=== PATIENT | female | born 1990 | race Caucasian/White ===

== ENCOUNTER 2019-10-05 12:50 | Emergency (ER) | payer SELFPAY ==
--- NOTE | 2019-10-05 13:01 | EDM.PDOC ---
ED HPI GENERAL MEDICAL PROBLEM - General Chief Complaint: General Stated Complaint: MEDICAL CLEARANCE Time Seen by Provider: 10/05/19 13:00 Source of Information: Reports: Patient History Limitations: Reports: No Limitations - History of Present Illness INITIAL COMMENTS - FREE TEXT/NARRATIVE: HISTORY AND PHYSICAL: History of present illness: Patient is a 29-year-old female who presents to the emergency room with law enforcement complaining of neck pain after having being pressed up against the wall by an officer. The officer states she was resisting arrest when he did have to put her against the wall to handcuff turgor. There was no fall or significant injury with putting her in cuffs. Patient does note that she has chronic neck pain but does want it x-rayed at this time. She denies any numbness , tingling, headache, change in vision. Patient is fully ambulatory without any difficulty or deficits. Offers no systemic complaints. Review of systems: As per history of present illness and below otherwise all systems reviewed and negative. Past medical history: As per history of present illness and as reviewed below otherwise noncontributory. Surgical history: As per history of present illness and as reviewed below otherwise noncontributory. Social history: See social history for further information Family history: As per history of present illness and as reviewed below otherwise noncontributory. Physical exam: General: Well-developed and well-nourished 29-year-old female. Alert and oriented. Anxious appearing and hyperverbal. Answers questions appropriately and ambulatory in the room. Enforcement is at the bedside as patient is in handcuffs. HEENT: Atraumatic, normocephalic, pupils equal and reactive bilaterally, negative for conjunctival pallor or scleral icterus, mucous membranes moist, TMs normal bilaterally, throat clear, neck supple, nontender, trachea midline. No drooling or trismus noted. No meningeal signs. No hot potato voice noted. Lungs: Clear to auscultation, breath sounds equal bilaterally, chest nontender. Heart: S1S2, regular rate and rhythm without overt murmur Abdomen: Soft, nondistended, nontender. Negative for masses or hepatosplenomegaly. Negative for costovertebral tenderness. C-spine/Back: No pinpoint vertebral tenderness upon palpation. No crepitus, step -offs or obvious deformities. Patient is ambulatory into the emergency room without difficulty or deficit. Able to rock back on heels and walk on toes. Denies any urinary or fecal incontinence. Denies any numbness, tingling or saddle paresthesia. Skin: Intact, warm, dry. No lesions or rashes noted. Extremities: Atraumatic, moves all extremities per self without difficulty or deficits, negative for cords or calf pain. Neurovascular unremarkable. Neuro: Awake, alert, oriented. Cranial nerves II through XII unremarkable. Cerebellum unremarkable. Motor and sensory unremarkable throughout. Exam nonfocal. Notes: Patient is requesting an x-ray of her cervical spine. Patient is very agitated and hyperverbal in the room. Initially she states she does not use any drugs but did tell nursing staff that she has a history of methamphetamine use. I asked her about this she declines. X-ray shows no acute findings. Supportive care measures were reviewed and discussed. Voices understanding and is agreeable to plan of care. Denies any further questions or concerns at this time. Diagnostics: Cervical spine Therapeutics: Declines Tylenol Prescription: None Impression: Encounter for medical screening exam Chronic back pain Plan: 1. Rest, ice and alternate Tylenol and ibuprofen for pain management. 2. Follow-up with your primary care provider as we discussed 3. Return to the ED as needed and as discussed. Definitive disposition and diagnosis as appropriate pending reevaluation and review of above. - Related Data Allergies Allergy/AdvReac Type Severity Reaction Status Date / Time No Known Allergies Allergy Verified 10/31/16 11:33 Home Meds: Home Meds Amoxicillin 500 mg PO TID #30 tablet 10/31/16 [Rx] Past Medical History - Past Surgical History HEENT Surgical History: Reports: Other (See Below) Social & Family History - Family History Family Medical History: Noncontributory - Caffeine Use Caffeine Use: Reports: Coffee ED ROS GENERAL - Review of Systems Review Of Systems: Comprehensive ROS is negative, except as noted in HPI. ED EXAM, GENERAL - Physical Exam Exam: See Below (See dictation) Course - Vital Signs Last Recorded V/S: Last Vital Signs Temp 96.9 F 10/05/19 13:45 Pulse 118 H 10/05/19 13:45 Resp 20 10/05/19 13:45 BP 138/92 H 10/05/19 13:45 Pulse Ox 97 10/05/19 13:45 Departure - Departure Time of Disposition: 13:05 Disposition: Home, Self-Care 01 Clinical Impression: Chronic neck pain, Encounter for medical screening examination - Discharge Information Instructions: Medical Screening Exam Referrals: PCP,None [Primary Care Provider] - Forms: ED Department Discharge Additional Instructions: The following information is given to patients seen in the emergency department who are being discharged to home. This information is to outline your options for follow-up care. We provide all patients seen in our emergency department with a follow-up referral. The need for follow-up, as well as the timing and circumstances, are variable depending upon the specifics of your emergency department visit. If you don't have a primary care physician on staff, we will provide you with a referral. We always advise you to contact your personal physician following an emergency department visit to inform them of the circumstance of the visit and for follow-up with them and/or the need for any referrals to a consulting specialist. The emergency department will also refer you to a specialist when appropriate. This referral assures that you have the opportunity for follow-up care with a specialist. All of these measure are taken in an effort to provide you with optimal care, which includes your follow-up. Under all circumstances we always encourage you to contact your private physician who remains a resource for coordinating your care. When calling for follow-up care, please make the office aware that this follow-up is from your recent emergency room visit. If for any reason you are refused follow-up, please contact the [facility] Emergency Department at and asked to speak to the emergency department charge nurse. [facility] [address] [place] [id number] [address] 1. Rest, ice and alternate Tylenol and ibuprofen for pain management. 2. Follow-up with your primary care provider as we discussed 3. Return to the ED as needed and as discussed. Sepsis Event Note - Focused Exam Vital Signs: Vital Signs Temp Pulse Resp BP Pulse Ox 10/05/19 13:45 96.9 F 118 H 20 138/92 H 97 10/05/19 13:02 97.5 F 129 H 22 H 140/78 98 Date Exam was Performed: 10/05/19 Time Exam was Performed: 14:22
[2019-10-05 13:49] VITALS: BP 138/92; PULSE 118
--- NOTE | 2019-10-05 14:21 | CR ---
Cervical spine: AP and lateral views of the cervical spine were obtained. Comparison: No previous study. Limitations: No swimmer's view was able to be obtained, C7 and T1 therefore not evaluated. Findings: Vertebral body heights and disc spaces are maintained. Prevertebral soft tissues are normal. Minimal scattered anterior endplate osteophytes are seen. No subluxation or fracture is identified. Impression: 1. Minimal endplate osteophytes. 2. Nonvisualized C7 and T1. 3. No additional abnormality is seen on 2 view cervical spine study. Diagnostic code #2 This report was dictated in Mountain Standard Time
== END 2019-10-05 14:23 ==
LOC: MW.ED 12:50
DX: M54.2 Cervicalgia (principal); G89.29 Other chronic pain; Y35.813A Legal intervention involving manhandling, suspect injured, initial encounter
CPT/HCPCS: 72040; 72040-26; 99282; 99283-25

== ENCOUNTER 2020-06-05 16:03 | Emergency (ER) | payer SELFPAY ==
--- NOTE | 2020-06-05 17:21 | EDM.PDOC ---
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 This been present for 5 days she denies abdominal pain nausea vomiting fever chills she has not had any vaginal discharge or dysuria anytime it is touched it is painful she is never had anything like this before. She is sexually active. Review of systems: As per history of present illness and below otherwise all systems reviewed and negative. Past medical history: As per history of present illness and as reviewed below otherwise noncontributory. Surgical history: As per history of present illness and as reviewed below otherwise noncontributory. Social history: No reported history of drug or alcohol abuse. Family history: As per history of present illness and as reviewed below otherwise noncontributory. Physical exam: HEENT: Atraumatic, normocephalic, pupils reactive, negative for conjunctival pallor or scleral icterus, mucous membranes moist, throat clear, neck supple, nontender, trachea midline. Lungs: Clear to auscultation, breath sounds equal bilaterally, chest nontender. Heart: S1S2, regular, negative for clicks, rubs, or JVD. Abdomen: Soft, nondistended, nontender. Negative for masses or hepatosple nomegaly. Negative for costovertebral tenderness. Pelvis: Stable nontender. Genitourinary: Patient has herpetic lesions on her left labia majora. No cervical motion tenderness abdomen soft and nontender no discharge Rectal: Deferred. Extremities: Atraumatic, negative for cords or calf pain. Neurovascular unremarkable. Neuro: Awake, alert, oriented. Cranial nerves II through XII unremarkable. Cere bellum unremarkable. Motor and sensory unremarkable throughout. Exam nonfocal. Diagnostics: [] Therapeutics: [] Impression: Genital herpes [] Plan: Patient was started on acyclovir I did offer empiric treatment for GC and chlamydia she is declining that at this time swabs have been sent [] Definitive disposition and diagnosis as appropriate pending reevaluation and review of above. 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 Musculoskeletal History: Reports: Neck Pain, Chronic Neurological History: Reports: Migraines Psychiatric History: Reports: None Endocrine/Metabolic History: Reports: None Hematologic History: Reports: None Immunologic History: Reports: None Oncologic (Cancer) History: Reports: None Dermatologic History: Reports: None - Infectious Disease History Infectious Disease History: Reports: Chicken Pox - Past Surgical History Head Surgeries/Procedures: Reports: None HEENT Surgical History: Reports: Other (See Below) Cardiovascular Surgical History: Reports: None Respiratory Surgical History: Reports: None GI Surgical History: Reports: None Female Surgical History: Reports: None Endocrine Surgical History: Reports: None Neurological Surgical History: Reports: None Musculoskeletal Surgical History: Reports: None Oncologic Surgical History: Reports: None Dermatological Surgical History: Reports: None Social & Family History - Family History Family Medical History: Noncontributory - Tobacco Use Smoking Status *Q: Current Every Day Smoker Years of Tobacco use: 15 Packs/Tins Daily: 1 - Caffeine Use Caffeine Use: Reports: None - Recreational Drug Use Recreational Drug Use: No ED ROS GENERAL - Review of Systems Review Of Systems: See Below ED EXAM, GENERAL - Physical Exam Exam: See Below Course - Vital Signs Last Recorded V/S: Last Vital Signs Temp 36.1 C 06/05/20 16:30 Pulse 72 06/05/20 16:30 Resp 18 06/05/20 16:30 BP 116/77 06/05/20 16:30 Pulse Ox 99 06/05/20 16:30 - Orders/Labs/Meds Orders: Active Orders 24 hr Category Date Time Status CHLAMYDIA AND GONORRHEA BY TMA Stat Lab 06/05/20 17:16 Received CHLAMYDIA AND GONORRHEA BY TMA Stat Lab 06/05/20 17:40 Received HSV AMPLIFIED MOLECULAR [MREF] Routine Lab 06/05/20 17:28 Received TRICH/SUE/CAND BY DNA PROBE [MOLEC] Stat Lab 06/05/20 17:40 Received Departure - Departure Time of Disposition: 17:47 Disposition: Home, Self-Care 01 Condition: Good Clinical Impression: Herpes genitalia - Discharge Information *PRESCRIPTION DRUG MONITORING PROGRAM REVIEWED*: Not Applicable *COPY OF PRESCRIPTION DRUG MONITORING REPORT IN PATIENT KAYLIN: Not Applicable Prescriptions: Acyclovir 800 mg PO 5XDAY #50 tablet Instructions: Genital Herpes Referrals: PCP,None [Primary Care Provider] - Forms: ED Department Discharge Additional Instructions: The following information is given to patients seen in the emergency department who are being discharged to home. This information is to outline your options for follow-up care. We provide all patients seen in our emergency department with a follow-up referral. The need for follow-up, as well as the timing and circumstances, are variable depending upon the specifics of your emergency department visit. If you don't have a primary care physician on staff, we will provide you with a referral. We always advise you to contact your personal physician following an emergency department visit to inform them of the circumstance of the visit and for follow-up with them and/or the need for any referrals to a consulting specialist. The emergency department will also refer you to a specialist when appropriate. This referral assures that you have the opportunity for follow-up care with a specialist. All of these measure are taken in an effort to provide you with optimal care, which includes your follow-up. Under all circumstances we always encourage you to contact your private physician who remains a resource for coordinating your care. When calling for follow-up care, please make the office aware that this follow-up is from your recent emergency room visit. If for any reason you are refused follow-up, please contact the [facility] Emergency Department at and asked to speak to the emergency department charge nurse. Sepsis Event Note (ED) - Evaluation Sepsis Screening Result: No Definite Risk - Focused Exam Vital Signs: Vital Signs Temp Pulse Resp BP Pulse Ox 06/05/20 16:30 36.1 C 72 18 116/77 99 - My Orders Last 24 Hours: My Active Orders 06/05/20 17:16 CHLAMYDIA AND GONORRHEA BY TMA Stat 06/05/20 17:28 HSV AMPLIFIED MOLECULAR [MREF] Routine 06/05/20 17:40 CHLAMYDIA AND GONORRHEA BY TMA Stat TRICH/SUE/CAND BY DNA PROBE [MOLEC] Stat - Assessment/Plan Last 24 Hours: My Active Orders 06/05/20 17:16 CHLAMYDIA AND GONORRHEA BY TMA Stat 06/05/20 17:28 HSV AMPLIFIED MOLECULAR [MREF] Routine 06/05/20 17:40 CHLAMYDIA AND GONORRHEA BY TMA Stat TRICH/SUE/CAND BY DNA PROBE [MOLEC] Stat
[2020-06-05 18:09] VITALS: BP 113/70; PULSE 71
== END 2020-06-05 18:00 | disposition home or self-care (01) ==
LOC: MW.ED 16:03
DX: A60.04 Herpesviral vulvovaginitis (principal); F17.210 Nicotine dependence, cigarettes, uncomplicated
CPT/HCPCS: 87480; 87491; 87510; 87529; 87591; 87660; 99282; 99283

== ENCOUNTER 2021-02-23 19:03 | Inpatient (IN) | payer MEDICAID ==
[2021-02-23] MEDS ORDERED: Misoprostol 200 MCG Tab PO PRN (20:08)
[2021-02-23] MEDS ORDERED: Sodium Chloride 0.9% 10 ML SDV IV PRN (20:08)
[2021-02-23] MEDS ORDERED: Sodium Chloride 0.9% 2.5 ML Syringe FLUSH PRN (20:08)
[2021-02-23] MEDS ORDERED: Sodium Chloride 0.9% 10 ML Syringe FLUSH PRN (20:08)
[2021-02-23] MEDS ORDERED: Nalbuphine 10 MG/1 ML Vial IVPUSH PRN (20:08)
[2021-02-23] MEDS ORDERED: Ondansetron 4 MG/2 ML SDV IVPUSH PRN (20:08)
[2021-02-23] MEDS ORDERED: Terbutaline 1 MG/ML SDV SUBCUT PRN (20:08)
[2021-02-23] MEDS ORDERED: Water For Irrigation,Sterile 1,000 ML Container IRR PRN (20:08)
[2021-02-23] MEDS ORDERED: Methylergonovine 0.2 MG/1 ML Amp IM PRN (20:08)
[2021-02-23] MEDS ORDERED: Carboprost Tromethamine 250 MCG/1 ML Amp IM PRN (20:08)
[2021-02-23] MEDS ORDERED: Tranexamic Acid 1,000 MG in Sodium Chloride 0.9% 100 ML IV PRN (20:08)
[2021-02-23] MEDS ORDERED: Lidocaine 1% 50 ML MDV INJECT PRN (20:08)
[2021-02-23] MEDS ORDERED: Oxytocin/0.9 % Sodium Chloride 30 UNIT/500 ML BAG IV SCH ×2 (20:15)
[2021-02-23] MEDS: Lactated Ringers 1,000 ML IV SCH (21:16)
[2021-02-23] MEDS: Misoprostol 25 MCG (1/4 of 100 MCG) Tab VAG PRN (21:16)
[2021-02-24] MEDS: Lactated Ringers 1,000 ML IV SCH ×3 (01:16→14:09)
[2021-02-24] MEDS: Misoprostol 25 MCG (1/4 of 100 MCG) Tab VAG PRN ×3 (01:17→09:31)
[2021-02-24] MEDS ORDERED: fentaNYL 100 MCG/2 ML SDV ONE ×2 (13:34→20:57)
[2021-02-24] MEDS ORDERED: Ropivacaine HCl/PF 100 ML ONE ×2 (13:34→20:58)
--- NOTE | 2021-02-24 13:59 | PCM.PREANE ---
Preanesthetic Assessment - Anesthesia/Transfusion/Family Hx Anesthesia History: Prior Anesthesia Without Reaction Family History of Anesthesia Reaction: No - Physical Assessment NPO Status Date: 02/24/21 NPO Status Time: 00:05 Height: 1.73 m Weight: 124.284 kg ASA Class: 2 - Lab Values: Laboratory Last Values WBC 7.63 K/uL (4.0-11.0) 02/23/21 19:20 RBC 4.29 M/uL (4.30-5.90) L 02/23/21 19:20 Hgb 13.2 g/dL (12.0-16.0) 02/23/21 19:20 Hct 40.3 % (36.0-46.0) 02/23/21 19:20 MCV 93.9 fL (80.0-98.0) 02/23/21 19:20 MCH 30.8 pg (27.0-32.0) 02/23/21 19:20 MCHC 32.8 g/dL (31.0-37.0) 02/23/21 19:20 RDW Std Deviation 49.2 fl (28.0-62.0) 02/23/21 19:20 RDW Coeff of Berna 15 % (11.0-15.0) 02/23/21 19:20 Plt Count 217 K/uL (150-400) 02/23/21 19:20 MPV 10.90 fL (7.40-12.00) 02/23/21 19:20 Nucleated RBC % 0.0 /100WBC 02/23/21 19:20 Nucleated RBCs # 0 K/uL 02/23/21 19:20 SARS-CoV-2 RNA (DAMIAN) NEGATIVE (NEGATIVE) 02/23/21 19:20 Blood Type A POSITIVE 02/23/21 19:20 Antibody Screen NEGATIVE 02/23/21 19:20 - Allergies Allergies/Adverse Reactions: Allergies Allergy/AdvReac Type Severity Reaction Status Date / Time No Known Allergies Allergy Verified 01/31/21 14:59 - Acknowledgements Anesthesia Type Planned: Epidural Pt an Appropriate Candidate for the Planned Anesthesia: Yes Alternatives and Risks of Anesthesia Discussed w Pt/Guardian: Yes Pt/Guardian Understands and Agrees with Anesthesia Plan: Yes PreAnesthesia Questionnaire HEENT History: Reports: None Cardiovascular History: Reports: None Respiratory History: Reports: None Gastrointestinal History: Reports: None Genitourinary History: Reports: None 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 Musculoskeletal History: Reports: Neck Pain, Chronic Neurological History: Reports: Migraines Psychiatric History: Reports: None Endocrine/Metabolic History: Reports: None Hematologic History: Reports: None Immunologic History: Reports: None Oncologic (Cancer) History: Reports: None Dermatologic History: Reports: None - Infectious Disease History Infectious Disease History: Reports: Chicken Pox - Past Surgical History Head Surgeries/Procedures: Reports: None HEENT Surgical History: Reports: Other (See Below) Other HEENT Surgeries/Procedures: lymph node removal left throat Cardiovascular Surgical History: Reports: None Respiratory Surgical History: Reports: None GI Surgical History: Reports: None Female Surgical History: Reports: None Endocrine Surgical History: Reports: None Neurological Surgical History: Reports: None Musculoskeletal Surgical History: Reports: None Oncologic Surgical History: Reports: None Dermatological Surgical History: Reports: None - SUBSTANCE USE Tobacco Use Status *Q: Current Every Day Tobacco User Tobacco Use Within Last Twelve Months: Cigarettes Second Hand Smoke Exposure: Yes Recreational Drug Use History: No - HOME MEDS Home Medications: Home Meds Acyclovir 400 mg PO TID 02/23/21 [History] Pnv No.95/Ferrous Fum/Folic AC [ Caplet] 1 tab PO DAILY 02/23/21 [History] - CURRENT (IN HOUSE) MEDS Current Meds: Current Medications Carboprost Tromethamine (Carboprost Tromethamine 250 Mcg/1 Ml Amp) 250 mcg IM ASDIRECTED PRN PRN Reason: Post Hemorrhage Lactated Ringer's (Ringers, Lactated) 1,000 mls @ 150 mls/hr IV ASDIRECTED EDGARDO Last Admin: 02/24/21 13:28 Dose: 999 mls/hr Documented by: Oxytocin/Sodium Chloride (Oxytocin 30 Unit/500 Ml-Ns) 30 unit in 500 mls @ 999 mls/hr IV TITRATE EDGARDO Tranexamic Acid 1,000 mg/ (Sodium Chloride) 110 mls @ 660 mls/hr IV ONETIME PRN PRN Reason: Bleeding Oxytocin/Sodium Chloride (Oxytocin 30 Unit/500 Ml-Ns) 30 unit in 500 mls @ 2 mls/hr IV TITRATE EDGARDO; Protocol Last Titration: 02/24/21 13:39 Dose: 4 munits/min, 4 mls/hr Documented by: Lidocaine HCl (Lidocaine 1% 50 Ml Mdv) 50 ml INJECT ONETIME PRN PRN Reason: Laceration repair Methylergonovine Maleate (Methylergonovine 0.2 Mg/1 Ml Amp) 0.2 mg IM ASDIRECTED PRN PRN Reason: Post Hemorrhage Misoprostol (Misoprostol 200 Mcg Tab) 200 mcg PO ONETIME PRN PRN Reason: Post Hemorrhage Misoprostol (Misoprostol 25 Mcg (1/4 Of 100 Mcg) Tab) 25 mcg VAG ONETIME PRN PRN Reason: Cervical Ripening Last Admin: 02/24/21 05:27 Dose: 25 mcg Documented by: Misoprostol (Misoprostol 25 Mcg (1/4 Of 100 Mcg) Tab) 25 mcg VAG Q4H PRN PRN Reason: Cervical Ripening Last Admin: 02/24/21 09:31 Dose: 25 mcg Documented by: Nalbuphine HCl (Nalbuphine 10 Mg/1 Ml Vial) 10 mg IVPUSH Q1H PRN PRN Reason: Pain (severe 7-10) Ondansetron HCl (Ondansetron 4 Mg/2 Ml Sdv) 4 mg IVPUSH Q6H PRN PRN Reason: Nausea/Vomiting Sodium Chloride (Sodium Chloride 0.9% 10 Ml Syringe) 10 ml FLUSH ASDIRECTED PRN PRN Reason: Keep Vein Open Sodium Chloride (Sodium Chloride 0.9% 2.5 Ml Syringe) 2.5 ml FLUSH ASDIRECTED PRN PRN Reason: Keep Vein Open Sodium Chloride (Sodium Chloride 0.9% 10 Ml Sdv) 10 ml IV ASDIRECTED PRN PRN Reason: IV Use Sterile Water (Water For Irrigation,Sterile 1,000 Ml Container) 1,000 ml IRR ASDIRECTED PRN PRN Reason: delivery Terbutaline Sulfate (Terbutaline 1 Mg/Ml Sdv) 0.25 mg SUBCUT ASDIRECTED PRN PRN Reason: Tacysystole Discontinued Medications Fentanyl (Fentanyl 100 Mcg/2 Ml Sdv) Confirm Administered Dose 100 mcg .ROUTE .STK-MED ONE Stop: 02/24/21 13:35 Ropivacaine (Naropin 0.2%) Confirm Administered Dose 100 mls @ as directed .ROUTE .STK-MED ONE Stop: 02/24/21 13:35
--- NOTE | 2021-02-24 14:04 | PCM.PRNOTE ---
- Free Text/Narrative Note: Anes Note Patietn requests epidural for L&D. Sitting position. Level L3-L4 midline approach. Sterile technique. Chloraprep scrub to lumbar area. Sterile fenestrated drape applied. Epidural space easily achieved single attmept using CHUN technique. CHUN at 3 cm. Cath threaded 5 cm with ease. Cath secured a t skin using sterile clear adhesive dressing. Test 1355 3 cc 1.5% lido with epi negative. 1358 Load 10 cc 0.2% ropivicaine with 1 mcg cc fentanyl in slow divided doses. 1402 PUmp started wtih 90 cc same solution. Rate is 8 cc hr with 6 cc q 20 min prn bolus. Jered well. Time with patient 1435 to 1515 Jp Durant CRNA
[2021-02-24] MEDS ORDERED: Acetaminophen 500 MG Tab PO PRN ×2 (16:32→22:03)
[2021-02-24] MEDS ORDERED: Oxytocin 10 Units/1 ML SDV ONE (21:09)
[2021-02-24] MEDS ORDERED: Methylergonovine 0.2 MG/1 ML Amp ONE (21:09)
--- NOTE | 2021-02-24 21:11 | PCM.PRNOTE ---
- Free Text/Narrative Note: Anes Note Epidural Bag change. A new bag of 0.2% ropiviciane with 1 mcg cc fentanyl added was placed. Rate is 8 cc hr with 6 cc q 20 min prn bolus. Time with patient Jp Durant CRNA
[2021-02-24] MEDS ORDERED: Benzocaine/Menthol 20%-0.5% Spray 78 GM Cannister TOP PRN (22:03)
[2021-02-24] MEDS ORDERED: Witch Hazel Medicated Pads 40/Jar TOP PRN (22:03)
[2021-02-24] MEDS ORDERED: Ondansetron 4 MG/2 ML SDV IVPUSH PRN (22:03)
[2021-02-24] MEDS ORDERED: Bisacodyl 10 MG Supp RECTAL PRN (22:03)
[2021-02-24] MEDS ORDERED: Ibuprofen 400 MG Tab PO PRN (22:03)
[2021-02-24] MEDS ORDERED: Docusate Sodium 100 MG Cap PO PRN (22:03)
[2021-02-24] MEDS ORDERED: Lanolin 100% Cream 7 GM Tube TOP PRN (22:03)
[2021-02-24] MEDS ORDERED: Acetaminophen/Butalbital/Caffeine 325-50-40 MG Tab PO PRN (22:06)
--- NOTE | 2021-02-24 22:16 | PCM.DEL ---
L & D Note - General Info Date of Service: 02/24/21 Mother's Due Date: 02/18/21 - Delivery Note Labor: Induced by Oxytocin Cervical Ripening Method: Misoprostil, Oxytocin Delivery Outcome: Livebirth Infant Delivery Method: Spontaneous Vaginal Delivery-Single Presentation: Left Occiput Anterior (FLETCHER) Nuchal Cord: None Anesthesia Type: Epidural Amniotic Fluid Description: Clear Laceration: Labial (right) Suture type: Vicryl Suture size: 2-0 Placenta: Intact, Spontaneous Cord: 3 Vessels Estimated Blood Loss: 400 Resuscitation Needed: No [place]: Bulb Syringe, Stimulated Score 1 min: 8 Score 5 min: 9 Delivery Comments (Free Text/Narrative):: Dictation #[id number] - General Info Date of Service: 02/24/21 - Patient Data Weight - Most Recent: 274 lb I&O - Last 24 Hours: Intake & Output 02/24/21 02/24/21 02/24/21 06:59 14:59 22:59 Output Total Balance @ Med Orders - Current: Current Medications Acetaminophen (Acetaminophen 500 Mg Tab) 1,000 mg PO Q6H PRN PRN Reason: Headache Last Admin: 02/24/21 16:45 Dose: 1,000 mg Documented by: Carboprost Tromethamine (Carboprost Tromethamine 250 Mcg/1 Ml Amp) 250 mcg IM ASDIRECTED PRN PRN Reason: Post Hemorrhage Lactated Ringer's (Ringers, Lactated) 1,000 mls @ 150 mls/hr IV ASDIRECTED EDGARDO Last Admin: 02/24/21 14:09 Dose: 150 mls/hr Documented by: Oxytocin/Sodium Chloride (Oxytocin 30 Unit/500 Ml-Ns) 30 unit in 500 mls @ 999 mls/hr IV TITRATE EDGARDO Tranexamic Acid 1,000 mg/ (Sodium Chloride) 110 mls @ 660 mls/hr IV ONETIME PRN PRN Reason: Bleeding Oxytocin/Sodium Chloride (Oxytocin 30 Unit/500 Ml-Ns) 30 unit in 500 mls @ 2 mls/hr IV TITRATE EDGARDO; Protocol Last Titration: 02/24/21 15:49 Dose: 12 munits/min, 12 mls/hr Documented by: Lidocaine HCl (Lidocaine 1% 50 Ml Mdv) 50 ml INJECT ONETIME PRN PRN Reason: Laceration repair Methylergonovine Maleate (Methylergonovine 0.2 Mg/1 Ml Amp) 0.2 mg IM ASDIRECTED PRN PRN Reason: Post Hemorrhage Misoprostol (Misoprostol 200 Mcg Tab) 200 mcg PO ONETIME PRN PRN Reason: Post Hemorrhage Misoprostol (Misoprostol 25 Mcg (1/4 Of 100 Mcg) Tab) 25 mcg VAG ONETIME PRN PRN Reason: Cervical Ripening Last Admin: 02/24/21 05:27 Dose: 25 mcg Documented by: Misoprostol (Misoprostol 25 Mcg (1/4 Of 100 Mcg) Tab) 25 mcg VAG Q4H PRN PRN Reason: Cervical Ripening Last Admin: 02/24/21 09:31 Dose: 25 mcg Documented by: Nalbuphine HCl (Nalbuphine 10 Mg/1 Ml Vial) 10 mg IVPUSH Q1H PRN PRN Reason: Pain (severe 7-10) Ondansetron HCl (Ondansetron 4 Mg/2 Ml Sdv) 4 mg IVPUSH Q6H PRN PRN Reason: Nausea/Vomiting Sodium Chloride (Sodium Chloride 0.9% 10 Ml Syringe) 10 ml FLUSH ASDIRECTED PRN PRN Reason: Keep Vein Open Sodium Chloride (Sodium Chloride 0.9% 2.5 Ml Syringe) 2.5 ml FLUSH ASDIRECTED PRN PRN Reason: Keep Vein Open Sodium Chloride (Sodium Chloride 0.9% 10 Ml Sdv) 10 ml IV ASDIRECTED PRN PRN Reason: IV Use Sterile Water (Water For Irrigation,Sterile 1,000 Ml Container) 1,000 ml IRR ASDIRECTED PRN PRN Reason: delivery Terbutaline Sulfate (Terbutaline 1 Mg/Ml Sdv) 0.25 mg SUBCUT ASDIRECTED PRN PRN Reason: Tacysystole Discontinued Medications Fentanyl (Fentanyl 100 Mcg/2 Ml Sdv) Confirm Administered Dose 100 mcg .ROUTE .STK-MED ONE Stop: 02/24/21 13:35 Fentanyl (Fentanyl 100 Mcg/2 Ml Sdv) Confirm Administered Dose 100 mcg .ROUTE .STK-MED ONE Stop: 02/24/21 20:58 Ropivacaine (Naropin 0.2%) Confirm Administered Dose 100 mls @ as directed .ROUTE .STK-MED ONE Stop: 02/24/21 13:35 Ropivacaine (Naropin 0.2%) Confirm Administered Dose 100 mls @ as directed .ROUTE .STK-MED ONE Stop: 02/24/21 20:59 Methylergonovine Maleate (Methylergonovine 0.2 Mg/1 Ml Amp) Confirm Administered Dose 0.2 mg .ROUTE .STK-MED ONE Stop: 02/24/21 21:10 Oxytocin (Oxytocin 10 Units/1 Ml Sdv) Confirm Administered Dose 10 unit .ROUTE .STK-MED ONE Stop: 02/24/21 21:10 - Exam Urinary Catheter Total Time: 0Days 2Hours - Problem List Review Problem List Initiated/Reviewed/Updated: Yes - My Orders Last 24 Hours: My Active Orders 02/24/21 16:32 Acetaminophen [Tylenol Extra Strength] 1,000 mg PO Q6H PRN 02/24/21 22:03 Patient Status [ADT] Routine May Shower [RC] ASDIRECTED Up ad Belen [RC] ASDIRECTED Vital Signs [RC] PER UNIT ROUTINE Acetaminophen [Tylenol Extra Strength] 1,000 mg PO Q4H PRN Acetaminophen [Tylenol Extra Strength] 500 mg PO Q4H PRN Benzocaine/Menthol [Dermoplast Pain Relief 20%-0.5% [place]] 78 gm TOP ASDIRECTED PRN Docusate Sodium [Colace] 100 mg PO BID PRN Ibuprofen [Motrin] 400 mg PO Q4H PRN Ibuprofen [Motrin] 800 mg PO Q6H PRN Lanolin [Lansinoh HPA] See Dose Instructions TOP ASDIRECTED PRN Ondansetron [Zofran] 4 mg IVPUSH Q6H PRN bisacodyL [Dulcolax] 10 mg RECTAL ONETIME PRN oxyCODONE 5 mg PO Q2H PRN witch Abhilash [Tucks] 1 pad TOP ASDIRECTED PRN Assess Lochia [WOMSER] Per Unit Routine Assess Uterine Involution [WOMSER] Per Unit Routine Peripheral IV Discontinue [OM.PC] Routine 02/24/21 22:04 Perineal Care [OM.PC] Per Unit Routine Sitz Bath [OM.PC] Per Unit Routine 02/24/21 22:06 Acetaminophen/Butalbital/Caff [Fioricet 325-50-40 MG] 1 tab PO Q6H PRN 02/25/21 05:11 HEMOGLOBIN/HEMATOCRIT,HH [HEME] Timed - Assessment Assessment:: 30 year old G4 now P3 s/p spontaneous vaginal delivery - Plan Plan:: Routine cares * Rh positive, rubella immune, GBS negative * PO pain medication ordered PRN * Regular diet as tolerated * Encourage ambulation and fluid intake when able * Plans to bottle feed * Monitor bleeding History of headaches * Tylenol and Fioricet ordered PRN Dispo: stable. Admit to floor with anticipation of routine cares.
--- NOTE | 2021-02-24 23:11 | OR ---
SURGEON: CHARLES DE LA PAZ MD DATE OF PROCEDURE: 02/24/2021 PROCEDURE: Spontaneous vaginal delivery. PREOPERATIVE DIAGNOSES: 1. Tanner gestation at 40 weeks' 5 days' gestation. 2. History of herpes simplex virus 2. 3. History of migraine headaches. 4. History of depression. POSTOPERATIVE DIAGNOSES: 1. Tanner gestation at 40 weeks' 5 days' gestation. 2. History of herpes simplex virus 2. 3. History of migraine headaches. 4. History of depression. PROCEDURE PERFORMED: Normal spontaneous vaginal delivery, repair of right labial laceration. PRIMARY SURGEON: Charles De La Paz MD ANESTHESIA: Epidural. COMPLICATIONS: None known. FINDINGS: Normal-appearing viable female , scores of 8 and 9. weight is 3750 g. ESTIMATED BLOOD LOSS: 400 mL. INDICATION FOR PROCEDURE: The patient is a 30-year-old 4, para 2, at 40 weeks' and 5 days' gestation, who presented to Labor and Delivery on the evening of 02/23/2021 for induction of labor with vaginal Cytotec followed by Pitocin due to postdate . Over the evening, she received 4 doses of vaginal Cytotec. On the morning of 02/24/2021, she was noted to be 2 cm following these 4 doses. IV Pitocin was then initiated, and shortly thereafter, the patient received an epidural for pain management. At approximately 1630, the patient was noted to be 3 cm dilated, 60% effaced, and -2 station. Artificial rupture of membranes was then performed, and an intrauterine pressure catheter was then placed without difficulty. Labor then progressed without complications, and I was called for delivery at approximately 2110. DESCRIPTION OF PROCEDURE: Upon my arrival to the room, the patient was completely dilated and +2 station. She was placed into the dorsal lithotomy position and pushing efforts were initiated. She pushed with contractions for approximately 15 minutes with good descent. head then delivered in the occiput anterior position, restituted ROT. No nuchal cord was noted. Anterior shoulder delivered easily followed by the posterior shoulder and remaining. The body was then delivered. The baby was then placed on the maternal abdomen and evaluated by awaiting nursing staff. After 60 seconds, the umbilical cord was then clamped and cut. Arterial, venous, and cord blood gases were then obtained. The placenta was then expressed intact. Three-vessel cord was noted. Inspection of the perineum and vaginal redd was then performed and a small right labial laceration was noted. This was repaired in the usual fashion with 2-0 Vicryl. Fundal massage was then performed, and the patient's bleeding was light. She tolerated the procedure well and was given care instructions. MI RAMOS /[id number]
[2021-02-24] MEDS: Ibuprofen 800 MG Tab PO PRN (23:41)
[2021-02-25] MEDS: Ibuprofen 800 MG Tab PO PRN ×3 (05:37→18:21)
--- NOTE | 2021-02-25 06:59 | PCM48HPAN ---
Post Anesthesia Note - EVALUATION WITHIN 48HRS OF ANESTHETIC Vital Signs in Normal Range: Yes Patient Participated in Evaluation: Yes Respiratory Function Stable: Yes Airway Patent: Yes Cardiovascular Function Stable: Yes Hydration Status Stable: Yes Pain Control Satisfactory: Yes Nausea and Vomiting Control Satisfactory: Yes Mental Status Recovered: Yes Vital Signs: Last Vital Signs Temp 36.4 C 02/25/21 06:00 Pulse 104 H 02/25/21 06:00 Resp 16 02/25/21 06:00 BP 115/80 02/25/21 06:00 Pulse Ox 97 02/25/21 06:00
--- NOTE | 2021-02-25 08:09 | PCM.PNPP ---
- General Info Date of Service: 02/25/21 Subjective Update: Eating breakfast during rounds. Tolerating regular diet. Pain well controlled, headache resolved with Fioricet. Lochia decreasing. Ambulating and voiding without difficulty. Bottle feeding baby. - General Info Date of Service: 02/25/21 - Patient Data Vital Signs - Most Recent: Last Vital Signs Temp 97.5 F 02/25/21 06:00 Pulse 104 H 02/25/21 06:00 Resp 16 02/25/21 06:00 BP 115/80 02/25/21 06:00 Pulse Ox 97 02/25/21 06:00 Weight - Most Recent: 274 lb I&O - Last 24 Hours: Intake & Output 02/24/21 02/25/21 02/25/21 22:59 06:59 14:59 Output Total Balance @ Lab Results - Last 24 Hours: Laboratory Results - last 24 hr 02/24/21 02/25/21 Range/Units 21:46 05:55 Hgb 11.3 L (12.0-16.0) g/dL Hct 34.8 L (36.0-46.0) % Cord ABG pH TNP Cord ABG Base Excess TNP Cord VBG pH 7.361 (7.25-7.45) Cord VBG Base Excess -4 (-10--2) Med Orders - Current: Current Medications Acetaminophen (Acetaminophen 500 Mg Tab) 1,000 mg PO Q6H PRN PRN Reason: Headache Last Admin: 02/24/21 16:45 Dose: 1,000 mg Documented by: Acetaminophen (Acetaminophen 500 Mg Tab) 500 mg PO Q4H PRN PRN Reason: Pain Acetaminophen (Acetaminophen 500 Mg Tab) 1,000 mg PO Q4H PRN PRN Reason: Pain Acetaminophen/Butalbital/Caffeine (Acetaminophen/Butalbital/Caffeine 325-50-40 Mg Tab) 1 tab PO Q6H PRN PRN Reason: Headache Last Admin: 02/24/21 23:40 Dose: 1 tab Documented by: Benzocaine/Menthol (Benzocaine/Menthol 20%-0.5% [place] 78 Gm Cannister) 78 gm TOP ASDIRECTED PRN PRN Reason: Perineal Comfort Measure Last Admin: 02/24/21 23:44 Dose: 1 can Documented by: Bisacodyl (Bisacodyl 10 Mg Supp) 10 mg RECTAL ONETIME PRN PRN Reason: Constipation Carboprost Tromethamine (Carboprost Tromethamine 250 Mcg/1 Ml Amp) 250 mcg IM ASDIRECTED PRN PRN Reason: Post Hemorrhage Docusate Sodium (Docusate Sodium 100 Mg Cap) 100 mg PO BID PRN PRN Reason: Constipation Emollient Ointment (Lanolin 100% Cream 7 Gm Tube) 0 gm TOP ASDIRECTED PRN PRN Reason: Sore Nipples Lactated Ringer's (Ringers, Lactated) 1,000 mls @ 150 mls/hr IV ASDIRECTED EDGARDO Last Admin: 02/24/21 14:09 Dose: 150 mls/hr Documented by: Oxytocin/Sodium Chloride (Oxytocin 30 Unit/500 Ml-Ns) 30 unit in 500 mls @ 999 mls/hr IV TITRATE EDGARDO Tranexamic Acid 1,000 mg/ (Sodium Chloride) 110 mls @ 660 mls/hr IV ONETIME PRN PRN Reason: Bleeding Oxytocin/Sodium Chloride (Oxytocin 30 Unit/500 Ml-Ns) 30 unit in 500 mls @ 2 mls/hr IV TITRATE [facility]; Protocol Last Titration: 02/24/21 15:49 Dose: 12 munits/min, 12 mls/hr Documented by: Ibuprofen (Ibuprofen 400 Mg Tab) 400 mg PO Q4H PRN PRN Reason: Pain Ibuprofen (Ibuprofen 800 Mg Tab) 800 mg PO Q6H PRN PRN Reason: Pain Last Admin: 02/25/21 05:37 Dose: 800 mg Documented by: Lidocaine HCl (Lidocaine 1% 50 Ml Mdv) 50 ml INJECT ONETIME PRN PRN Reason: Laceration repair Methylergonovine Maleate (Methylergonovine 0.2 Mg/1 Ml Amp) 0.2 mg IM ASDIRECTED PRN PRN Reason: Post Hemorrhage Misoprostol (Misoprostol 200 Mcg Tab) 200 mcg PO ONETIME PRN PRN Reason: Post Hemorrhage Misoprostol (Misoprostol 25 Mcg (1/4 Of 100 Mcg) Tab) 25 mcg VAG ONETIME PRN PRN Reason: Cervical Ripening Last Admin: 02/24/21 05:27 Dose: 25 mcg Documented by: Misoprostol (Misoprostol 25 Mcg (1/4 Of 100 Mcg) Tab) 25 mcg VAG Q4H PRN PRN Reason: Cervical Ripening Last Admin: 02/24/21 09:31 Dose: 25 mcg Documented by: Nalbuphine HCl (Nalbuphine 10 Mg/1 Ml Vial) 10 mg IVPUSH Q1H PRN PRN Reason: Pain (severe 7-10) Ondansetron HCl (Ondansetron 4 Mg/2 Ml Sdv) 4 mg IVPUSH Q6H PRN PRN Reason: Nausea/Vomiting Ondansetron HCl (Ondansetron 4 Mg/2 Ml Sdv) 4 mg IVPUSH Q6H PRN PRN Reason: Nausea/Vomiting Last Admin: 02/24/21 23:44 Dose: 4 mg Documented by: Oxycodone HCl (Oxycodone 5 Mg Tab) 5 mg PO Q2H PRN PRN Reason: Pain Sodium Chloride (Sodium Chloride 0.9% 10 Ml Syringe) 10 ml FLUSH ASDIRECTED PRN PRN Reason: Keep Vein Open Sodium Chloride (Sodium Chloride 0.9% 2.5 Ml Syringe) 2.5 ml FLUSH ASDIRECTED PRN PRN Reason: Keep Vein Open Sodium Chloride (Sodium Chloride 0.9% 10 Ml Sdv) 10 ml IV ASDIRECTED PRN PRN Reason: IV Use Sterile Water (Water For Irrigation,Sterile 1,000 Ml Container) 1,000 ml IRR ASDIRECTED PRN PRN Reason: delivery Terbutaline Sulfate (Terbutaline 1 Mg/Ml Sdv) 0.25 mg SUBCUT ASDIRECTED PRN PRN Reason: Tacysystole Witch Abhilash (Witch Abhilash Medicated Pads 40/Jar) 1 pad TOP ASDIRECTED PRN PRN Reason: comfort care Discontinued Medications Fentanyl (Fentanyl 100 Mcg/2 Ml Sdv) Confirm Administered Dose 100 mcg .ROUTE .STK-MED ONE Stop: 02/24/21 13:35 Fentanyl (Fentanyl 100 Mcg/2 Ml Sdv) Confirm Administered Dose 100 mcg .ROUTE .STK-MED ONE Stop: 02/24/21 20:58 Ropivacaine (Naropin 0.2%) Confirm Administered Dose 100 mls @ as directed .ROUTE .STK-MED ONE Stop: 02/24/21 13:35 Ropivacaine (Naropin 0.2%) Confirm Administered Dose 100 mls @ as directed .ROUTE .STK-MED ONE Stop: 02/24/21 20:59 Methylergonovine Maleate (Methylergonovine 0.2 Mg/1 Ml Amp) Confirm Administered Dose 0.2 mg .ROUTE .STK-MED ONE Stop: 02/24/21 21:10 Oxytocin (Oxytocin 10 Units/1 Ml Sdv) Confirm Administered Dose 10 unit .ROUTE .STK-MED ONE Stop: 02/24/21 21:10 - Infant Interaction Disposition, : in Room with Family Infant Feeding: Bottle Fed Infant Support Person: Mother, Sister - Recovery Exam Fundal Tone: Firm Fundal Level: 1 Fingerbreadths Below Umbilicus Fundal Placement: Midline Lochia Amount: Scant Lochia Color: Rubra/Red Perineum Description: Intact, Minimal Bruising/Swelling Episiotomy/Laceration: None Bladder Status: Voiding Urinary Elimination: Voided - Exam General: Alert Lungs: Normal Respiratory Effort Cardiovascular: Regular Rate GI/Abdominal Exam: Soft, Non-Tender Extremities: Normal Range of Motion, Non-Tender, Pedal Edema (1+) Skin: Warm, Dry, Intact Neurological: No New Focal Deficit Psy/Mental Status: Normal Mood - Problem List Review Problem List Initiated/Reviewed/Updated: Yes - My Orders Last 24 Hours: My Active Orders 02/24/21 16:32 Acetaminophen [Tylenol Extra Strength] 1,000 mg PO Q6H PRN 02/24/21 22:03 Patient Status [ADT] Routine May Shower [RC] ASDIRECTED Up ad Belen [RC] ASDIRECTED Vital Signs [RC] PER UNIT ROUTINE Acetaminophen [Tylenol Extra Strength] 1,000 mg PO Q4H PRN Acetaminophen [Tylenol Extra Strength] 500 mg PO Q4H PRN Benzocaine/Menthol [Dermoplast Pain Relief 20%-0.5% [place]] 78 gm TOP DIRECTED PRN Docusate Sodium [Colace] 100 mg PO BID PRN Ibuprofen [Motrin] 400 mg PO Q4H PRN Ibuprofen [Motrin] 800 mg PO Q6H PRN Lanolin [Lansinoh HPA] See Dose Instructions TOP ASDIRECTED PRN Ondansetron [Zofran] 4 mg IVPUSH Q6H PRN bisacodyL [Dulcolax] 10 mg RECTAL ONETIME PRN oxyCODONE 5 mg PO Q2H PRN witch Abhilash [Tucks] 1 pad TOP ASDIRECTED PRN Assess Lochia [WOMSER] Per Unit Routine Assess Uterine Involution [WOMSER] Per Unit Routine Peripheral IV Discontinue [OM.PC] Routine 02/24/21 22:04 Perineal Care [OM.PC] Per Unit Routine Sitz Bath [OM.PC] Per Unit Routine 02/24/21 22:06 Acetaminophen/Butalbital/Caff [Fioricet 325-50-40 MG] 1 tab PO Q6H PRN 02/25/21 Breakfast Regular Diet [DIET] - Assessment Assessment:: 30 year old G4 now P3 PPD1 s/p spontaneous vaginal delivery - Plan Plan:: Routine cares * Rh positive, rubella immune, GBS negative * PO pain medication ordered PRN * Regular diet as tolerated * Encourage ambulation and fluid intake when able * Plans to bottle feed baby * Monitor bleeding History of headaches - improved * Tylenol and Fioricet ordered PRN History of depression * Denies SI/HI today * Reviewed options for prophylaxis of recurrent symptoms including counseling services and/or medical therapy. Patient desires to wait to start further management at this time Dispo: stable. Anticipate discharge tomorrow due to late evening delivery. Continue cares today.
[2021-02-25] MEDS: oxyCODONE 5 MG Tab PO PRN ×2 (14:07→21:00)
[2021-02-25] MEDS: Acetaminophen 500 MG Tab PO PRN (14:08)
[2021-02-26] MEDS: Ibuprofen 800 MG Tab PO PRN ×2 (03:56→12:46)
[2021-02-26 07:42] VITALS: BP 100/61; PULSE 82
--- NOTE | 2021-02-26 08:21 | PCM.PNPP ---
- General Info Date of Service: 02/26/21 Subjective Update: Sitting at edge of bed, eating breakfast during rounds. Tolerating regular diet. Pain well controlled. Lochia decreasing. Ambulating and voiding without difficulty. Bottle feeding baby. Reports increasing swelling of lower extremities with right leg worse than left. Denies fever/chills, headache, shortness of breath or chest pain. - General Info Date of Service: 02/26/21 - Patient Data Vital Signs - Most Recent: Last Vital Signs Temp 98.0 F 02/26/21 07:41 Pulse 82 02/26/21 07:41 Resp 16 02/26/21 07:41 BP 100/61 02/26/21 07:41 Pulse Ox 96 02/26/21 07:41 Weight - Most Recent: 274 lb Med Orders - Current: Current Medications Acetaminophen (Acetaminophen 500 Mg Tab) 1,000 mg PO Q6H PRN PRN Reason: Headache Last Admin: 02/24/21 16:45 Dose: 1,000 mg Documented by: Acetaminophen (Acetaminophen 500 Mg Tab) 500 mg PO Q4H PRN PRN Reason: Pain Last Admin: 02/25/21 14:08 Dose: 500 mg Documented by: Acetaminophen (Acetaminophen 500 Mg Tab) 1,000 mg PO Q4H PRN PRN Reason: Pain Acetaminophen/Butalbital/Caffeine (Acetaminophen/Butalbital/Caffeine 325-50-40 Mg Tab) 1 tab PO Q6H PRN PRN Reason: Headache Last Admin: 02/24/21 23:40 Dose: 1 tab Documented by: Benzocaine/Menthol (Benzocaine/Menthol 20%-0.5% [place] 78 Gm Cannister) 78 gm TOP ASDIRECTED PRN PRN Reason: Perineal Comfort Measure Last Admin: 02/24/21 23:44 Dose: 1 can Documented by: Bisacodyl (Bisacodyl 10 Mg Supp) 10 mg RECTAL ONETIME PRN PRN Reason: Constipation Carboprost Tromethamine (Carboprost Tromethamine 250 Mcg/1 Ml Amp) 250 mcg IM ASDIRECTED PRN PRN Reason: Post Hemorrhage Docusate Sodium (Docusate Sodium 100 Mg Cap) 100 mg PO BID PRN PRN Reason: Constipation Emollient Ointment (Lanolin 100% Cream 7 Gm Tube) 0 gm TOP ASDIRECTED PRN PRN Reason: Sore Nipples Lactated Ringer's (Ringers, Lactated) 1,000 mls @ 150 mls/hr IV ASDIRECTED EDGARDO Last Admin: 02/24/21 14:09 Dose: 150 mls/hr Documented by: Oxytocin/Sodium Chloride (Oxytocin 30 Unit/500 Ml-Ns) 30 unit in 500 mls @ 999 mls/hr IV TITRATE EDGARDO Tranexamic Acid 1,000 mg/ (Sodium Chloride) 110 mls @ 660 mls/hr IV ONETIME PRN PRN Reason: Bleeding Oxytocin/Sodium Chloride (Oxytocin 30 Unit/500 Ml-Ns) 30 unit in 500 mls @ 2 mls/hr IV TITRATE EDGARDO; Protocol Last Titration: 02/24/21 15:49 Dose: 12 munits/min, 12 mls/hr Documented by: Ibuprofen (Ibuprofen 400 Mg Tab) 400 mg PO Q4H PRN PRN Reason: Pain Ibuprofen (Ibuprofen 800 Mg Tab) 800 mg PO Q6H PRN PRN Reason: Pain Last Admin: 02/26/21 03:56 Dose: 800 mg Documented by: Lidocaine HCl (Lidocaine 1% 50 Ml Mdv) 50 ml INJECT ONETIME PRN PRN Reason: Laceration repair Methylergonovine Maleate (Methylergonovine 0.2 Mg/1 Ml Amp) 0.2 mg IM ASDIRECTED PRN PRN Reason: Post Hemorrhage Misoprostol (Misoprostol 200 Mcg Tab) 200 mcg PO ONETIME PRN PRN Reason: Post Hemorrhage Misoprostol (Misoprostol 25 Mcg (1/4 Of 100 Mcg) Tab) 25 mcg VAG ONETIME PRN PRN Reason: Cervical Ripening Last Admin: 02/24/21 05:27 Dose: 25 mcg Documented by: Misoprostol (Misoprostol 25 Mcg (1/4 Of 100 Mcg) Tab) 25 mcg VAG Q4H PRN PRN Reason: Cervical Ripening Last Admin: 02/24/21 09:31 Dose: 25 mcg Documented by: Nalbuphine HCl (Nalbuphine 10 Mg/1 Ml Vial) 10 mg IVPUSH Q1H PRN PRN Reason: Pain (severe 7-10) Ondansetron HCl (Ondansetron 4 Mg/2 Ml Sdv) 4 mg IVPUSH Q6H PRN PRN Reason: Nausea/Vomiting Ondansetron HCl (Ondansetron 4 Mg/2 Ml Sdv) 4 mg IVPUSH Q6H PRN PRN Reason: Nausea/Vomiting Last Admin: 02/24/21 23:44 Dose: 4 mg Documented by: Oxycodone HCl (Oxycodone 5 Mg Tab) 5 mg PO Q2H PRN PRN Reason: Pain Last Admin: 02/25/21 21:00 Dose: 5 mg Documented by: Sodium Chloride (Sodium Chloride 0.9% 10 Ml Syringe) 10 ml FLUSH ASDIRECTED PRN PRN Reason: Keep Vein Open Sodium Chloride (Sodium Chloride 0.9% 2.5 Ml Syringe) 2.5 ml FLUSH ASDIRECTED PRN PRN Reason: Keep Vein Open Sodium Chloride (Sodium Chloride 0.9% 10 Ml Sdv) 10 ml IV ASDIRECTED PRN PRN Reason: IV Use Sterile Water (Water For Irrigation,Sterile 1,000 Ml Container) 1,000 ml IRR ASDIRECTED PRN PRN Reason: delivery Terbutaline Sulfate (Terbutaline 1 Mg/Ml Sdv) 0.25 mg SUBCUT ASDIRECTED PRN PRN Reason: Tacysystole Witch Vicky (Witch Vicky Medicated Pads 40/Jar) 1 pad TOP ASDIRECTED PRN PRN Reason: comfort care Discontinued Medications Fentanyl (Fentanyl 100 Mcg/2 Ml Sdv) Confirm Administered Dose 100 mcg .ROUTE .STK-MED ONE Stop: 02/24/21 13:35 Fentanyl (Fentanyl 100 Mcg/2 Ml Sdv) Confirm Administered Dose 100 mcg .ROUTE .STK-MED ONE Stop: 02/24/21 20:58 Ropivacaine (Naropin 0.2%) Confirm Administered Dose 100 mls @ as directed .ROUTE .STK-MED ONE Stop: 02/24/21 13:35 Ropivacaine (Naropin 0.2%) Confirm Administered Dose 100 mls @ as directed .ROUTE .STK-MED ONE Stop: 02/24/21 20:59 Methylergonovine Maleate (Methylergonovine 0.2 Mg/1 Ml Amp) Confirm Administered Dose 0.2 mg .ROUTE .STK-MED ONE Stop: 02/24/21 21:10 Oxytocin (Oxytocin 10 Units/1 Ml Sdv) Confirm Administered Dose 10 unit .ROUTE .STK-MED ONE Stop: 02/24/21 21:10 - Interaction Infant Disposition, : [facility] to Nursery Infant Feeding: Bottle Fed Infant Support Person: Mother, Sister - Recovery Exam Fundal Tone: Firm Fundal Level: 2 Fingerbreadths Below Umbilicus Fundal Placement: Midline Lochia Amount: Small Lochia Color: Rubra/Red Perineum Description: Intact, Minimal Bruising/Swelling Episiotomy/Laceration: None Bladder Status: Voiding Urinary Elimination: Voided - Exam General: Alert Lungs: Normal Respiratory Effort Cardiovascular: Regular Rate GI/Abdominal Exam: Soft, Non-Tender Extremities: Normal Range of Motion, Non-Tender, Pedal Edema (1+, right slightly more edematous than left lower extremity), Other (negative Gladys's sign) Skin: Warm, Dry, Intact Neurological: No New Focal Deficit Psy/Mental Status: Normal Mood - Problem List Review Problem List Initiated/Reviewed/Updated: Yes - Assessment Assessment:: 30 year old G4 now P3 PPD2 s/p spontaneous vaginal delivery - Plan Plan:: Routine cares * Rh positive, rubella immune, GBS negative * PO pain medication ordered PRN * Regular diet as tolerated * Encourage ambulation and fluid intake when able * Plans to bottle feed baby * Monitor bleeding * Desires contraceptive patch >6 weeks after delivery History of headaches - improved * Tylenol and Fioricet ordered PRN History of depression * Denies SI/HI today * Reviewed options for prophylaxis of recurrent symptoms including counseling services and/or medical therapy. Patient desires to wait to start further management at this time, will have follow up call with patient in 1 week to assess mood. Lower extremity swelling, R > L * No erythema, tenderness; negative Gladys's sign * Due to asymmetry, will order Doppler US to r/o DVT * Encouraged patient to elevate legs when sitting and increase ambulation and fluid intake when possible. Dispo: stable. Anticipate discharge today pending maternal/ status. Reviewed discharge instructions. Patient to return to [facility] for PP visit in 4 weeks.
[2021-02-26] MEDS: oxyCODONE 5 MG Tab PO PRN (08:54)
[2021-02-26] MEDS: Acetaminophen 500 MG Tab PO PRN (08:54)
--- NOTE | 2021-02-26 11:09 | US ---
INDICATION: Leg pain and swelling TECHNIQUE: Ultrasound venous duplex lower right extremity. Compression venous exam was performed using cano-scale, color Doppler, and spectral Doppler imaging. COMPARISON: None. FINDINGS: Sonographic imaging demonstrates the right common femoral, deep femoral, superficial femoral, popliteal, posterior tibial and greater saphenous and the contralateral left common femoral veins to be fully compressible with normal color Doppler blood flow. IMPRESSION: Normal right lower extremity venous ultrasound, no sign of deep venous thrombosis. Dictated by Delgado Alvarado MD @ 02/26/2021 11:07:[address] Delgado Alvarado @ Feb 26 2021 11:07AM
== END 2021-02-26 16:00 | disposition home or self-care (01) | DRG 807 ==
LOC: MW.OBCHECK 19:03 → MW.OB 19:03 → MW.OBCHECK 20:08 → OBSVTOIN 02-24 21:46 → MW.OB 02-24 23:50
PROVIDERS: ADMIT Obstetrics & Gynecology; ATTEND Obstetrics & Gynecology
PROC: 10E0XZZ Delivery of Products of Conception, External Approach (ICD-10-PCS; principal; 2021-02-24)
PROC: 10907ZC Drainage of Amniotic Fluid, Therapeutic from Products of Conception, Via Natural or Artificial Opening (ICD-10-PCS; 2021-02-24)
PROC: 3E0P7VZ Introduction of Hormone into Female Reproductive, Via Natural or Artificial Opening (ICD-10-PCS; 2021-02-24)
PROC: 3E033VJ Introduction of Other Hormone into Peripheral Vein, Percutaneous Approach (ICD-10-PCS; 2021-02-24)
PROC: 0HQ9XZZ Repair Perineum Skin, External Approach (ICD-10-PCS; 2021-02-24)
PROC: 4A1HXCZ Monitoring of Products of Conception, Cardiac Rate, External Approach (ICD-10-PCS; 2021-02-24)
PROC: 10H07YZ Insertion of Other Device into Products of Conception, Via Natural or Artificial Opening (ICD-10-PCS; 2021-02-24)
PROC: 3E0R3BZ Introduction of Anesthetic Agent into Spinal Canal, Percutaneous Approach (ICD-10-PCS; 2021-02-24)
PROC: 00HU33Z Insertion of Infusion Device into Spinal Canal, Percutaneous Approach (ICD-10-PCS; 2021-02-24)
DX: O48.0 Post-term pregnancy (principal); Z37.0 Single live birth; Z3A.40 40 weeks gestation of pregnancy; O70.0 First degree perineal laceration during delivery; Z20.822 Contact with and (suspected) exposure to COVID-19
CPT/HCPCS: 01967; 36415; 51702; 59025; 59409; 82803; 85014; 85018; 85027; 86592; 86850; 86900; 86901; 93971-26-RT; 93971-RT; A9270-GY; J2405; J2590; J2795; J3010; J7120; U0002

== ENCOUNTER 2021-07-26 17:46 | Emergency (ER) | payer MEDICAID ==
[2021-07-26] MEDS ORDERED: Lidocaine 2% Viscous Solution 15 ML Cup PO ONE (19:58)
[2021-07-26] MEDS ORDERED: Benzocaine 20% Topical Spray UD MUCMEM ONE (19:58)
--- NOTE | 2021-07-26 19:59 | EDM.PDOC ---
ED HPI GENERAL MEDICAL PROBLEM - General Chief Complaint: ENT Problem Stated Complaint: TOOTH PAIN Time Seen by Provider: 07/26/21 19:14 Source of Information: Reports: Patient History Limitations: Reports: No Limitations - History of Present Illness INITIAL COMMENTS - FREE TEXT/NARRATIVE: HISTORY AND PHYSICAL: History of present illness: Patient is a 31-year-old female who presents emergency room today with concern of right-sided wisdom tooth pain. Patient states that she has a cracked wisdom tooth and states that she saw a dentist approximately 1 month ago and was given antibiotics. Patient states that she had improvement of her pain until a few days ago. Patient states that she does have an appointment in September to get the wisdom tooth removed, but states that today when she was at work, the tooth pain returned and is much more severe. Patient states that she has been able to eat and drink but does have to eat on the other side. Patient denies any other symptoms or concerns. Patient denies fever, chills, chest pain, shortness of breath, or cough. Denies headache, neck stiff ness, change in vision, syncope, or near syncope. Denies nausea, vomiting, abdominal pain, diarrhea, constipation, or dysuria. Has not noted any blood in urine or stool. Patient has been eating and drinking appropriately. Review of systems: As per history of present illness and below otherwise all systems reviewed and negative. Past medical history: As per history of present illness and as reviewed below otherwise noncontributory. Surgical history: As per history of present illness and as reviewed below otherwise noncontributory. Social history: See social history for further information Family history: As per history of present illness and as reviewed below otherwise noncontributory. Physical exam: General: Patient is alert, oriented, and in no acute distress. Patient sitting comfortably on exam table. Vitals stable and reviewed by me HEENT: Tooth #32 is half missing and eroded to the gumline with exposed nerve root. No sign of dental abscess at this time. Otherwise, atraumatic, normocephalic, pupils equal and reactive bilaterally, negative for conjunctival pallor or scleral icterus, mucous membranes moist, TMs normal bilaterally, throat clear, neck supple, nontender, trachea midline. No drooling or trismus noted. No meningeal signs. No hot potato voice noted. Lungs: Clear to auscultation, breath sounds equal bilaterally, chest nontender. Heart: S1S2, regular rate and rhythm without overt murmur Abdomen: Soft, nondistended, nontender. Negative for masses or hepatosplenomegaly. Negative for costovertebral tenderness. Pelvis: Stable nontender. Genitourinary: Deferred. Rectal: Deferred. Skin: Intact, warm, dry. No lesions or rashes noted. Extremities: Atraumatic, negative for cords or calf pain. Neurovascular unremarkable. Neuro: Awake, alert, oriented. Cranial nerves II through XII unremarkable. Cerebellum unremarkable. Motor and sensory unremarkable throughout. Exam nonfocal. Notes: At this time, we do not have any supplies to do a temporary tooth filling. I did discuss going to the local store to get a tooth feeling [id number]. Patient was provided with dental balls. Discussed importance for follow-up with a dentist. Voices understanding and is agreeable to plan of care. Denies any further questions or concerns at this time. Diagnostics: None Therapeutics: Dental balls Prescription: Augmentin Impression: Tooth fracture Plan: 1. Please take medication as prescribed. 2. Tylenol and/or ibuprofen as directed and as needed for pain management. 3. "Tooth Balls" have been given to you; apply along the gumline every 2-3 hours as needed. Do not swallow these; external use only. 4. Follow-up with a dentist for definitive care. Return to the ED as needed and as discussed. Definitive disposition and diagnosis as appropriate pending reevaluation and review of above. Right Upper Jaw Pain Score (Numeric/FACES): 9 - Related Data Allergies Allergy/AdvReac Type Severity Reaction Status Date / Time No Known Allergies Allergy Verified 01/31/21 14:59 Home Meds: Home Meds Pnv No.95/Ferrous Fum/Folic AC [ Caplet] 1 tab PO DAILY 02/23/21 [History] Acetaminophen/Butalbital/Caff [Fioricet 325-50-40 MG] 1 tab PO Q6H PRN #30 tablet 02/26/21 [Rx] Ibuprofen [Motrin] 800 mg PO Q6H PRN #30 tablet 02/26/21 [Rx] Amoxicillin/Potassium Clav [Augmentin 500-125 Tablet] 1 each PO BID 7 Days #14 tablet 07/26/21 [Rx] Past Medical History - Past Health History Medical/Surgical History: Denies Medical/Surgical History HEENT History: Reports: None Cardiovascular History: Reports: None Respiratory History: Reports: None Gastrointestinal History: Reports: None Genitourinary History: Reports: None 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 Musculoskeletal History: Reports: Neck Pain, Chronic Neurological History: Reports: Migraines Psychiatric History: Reports: None Endocrine/Metabolic History: Reports: None Hematologic History: Reports: None Immunologic History: Reports: None Oncologic (Cancer) History: Reports: None Dermatologic History: Reports: None - Infectious Disease History Infectious Disease History: Reports: Chicken Pox - Past Surgical History Head Surgeries/Procedures: Reports: None HEENT Surgical History: Reports: Other (See Below) Other HEENT Surgeries/Procedures: lymph node removal left throat Cardiovascular Surgical History: Reports: None Respiratory Surgical History: Reports: None GI Surgical History: Reports: None Female Surgical History: Reports: None Endocrine Surgical History: Reports: None Neurological Surgical History: Reports: None Musculoskeletal Surgical History: Reports: None Oncologic Surgical History: Reports: None Dermatological Surgical History: Reports: None Social & Family History - Family History Family Medical History: No Pertinent Family History HEENT: Reports: None Cardiac: Reports: None Respiratory: Reports: None GI: Reports: None : Reports: None OBGYN: Reports: None Musculoskeletal: Reports: None Neurological: Reports: None Psychiatric: Reports: None Endocrine/Metabolic: Reports: None Hematologic: Reports: None Immunologic: Reports: None Dermatologic: Reports: None Oncologic: Reports: None - Tobacco Use Tobacco Use Status *Q: Current Every Day Tobacco User Years of Tobacco use: 10 Packs/Tins Daily: 0.5 - Caffeine Use Caffeine Use: Reports: Soda Other Caffeine Use: 2-3 day - Recreational Drug Use Recreational Drug Use: No ED ROS GENERAL - Review of Systems Review Of Systems: Comprehensive ROS is negative, except as noted in HPI. ED EXAM, GENERAL - Physical Exam Exam: See Below (See dictation) Course - Vital Signs Last Recorded V/S: Last Vital Signs Temp 98.1 F 07/26/21 20:45 Pulse 81 07/26/21 20:45 Resp 18 07/26/21 20:45 BP 124/86 07/26/21 20:45 Pulse Ox 98 07/26/21 20:45 - Orders/Labs/Meds Meds: Medications Discontinued Medications Generic Name Dose Route Start Last Admin Trade Name Freq PRN Reason Stop Dose Admin Benzocaine 2 each 07/26/21 19:58 07/26/21 20:49 Benzocaine 20% Topical [place] Ud MUCMEM 07/26/21 19:59 2 each ONETIME ONE Administration Lidocaine HCl 15 ml 07/26/21 19:58 07/26/21 20:49 Lidocaine 2% Viscous Solution 15 Ml Cup PO 07/26/21 19:59 15 ml ONETIME ONE Administration Departure - Departure Time of Disposition: 19:58 Disposition: Home, Self-Care 01 Clinical Impression: Tooth fracture - Discharge Information Prescriptions: Amoxicillin/Potassium Clav [Augmentin 500-125 Tablet] 1 each PO BID 7 Days #14 tablet Instructions: Tooth Injuries, [id number] Referrals: Lenny Umana MD [Primary Care Provider] - Forms: ED Department Discharge Additional Instructions: The following information is given to patients seen in the emergency department who are being discharged to home. This information is to outline your options for follow-up care. We provide all patients seen in our emergency department with a follow-up referral. The need for follow-up, as well as the timing and circumstances, are variable depending upon the specifics of your emergency department visit. If you don't have a primary care physician on staff, we will provide you with a referral. We always advise you to contact your personal physician following an emergency department visit to inform them of the circumstance of the visit and for follow-up with them and/or the need for any referrals to a consulting specialist. The emergency department will also refer you to a specialist when appropriate. This referral assures that you have the opportunity for follow-up care with a specialist. All of these measure are taken in an effort to provide you with optimal care, which includes your follow-up. Under all circumstances we always encourage you to contact your private phys ician who remains a resource for coordinating your care. When calling for follow-up care, please make the office aware that this follow-up is from your recent emergency room visit. If for any reason you are refused follow-up, please contact the [facility] Emergency Department at and asked to speak to the emergency department charge nurse. [facility] Primary Care [address] [place] [id number] [facility] [address] [place] [id number] 1. Please take medication as prescribed. 2. Tylenol and/or ibuprofen as directed and as needed for pain management. 3. "Tooth Balls" have been given to you; apply along the gumline every 2-3 hours as needed. Do not swallow these; external use only. 4. Follow-up with a dentist for definitive care. Return to the ED as needed and as discussed. Sepsis Event Note (ED) - Evaluation Sepsis Screening Result: No Definite Risk - Focused Exam Vital Signs: Vital Signs Temp Pulse Resp BP Pulse Ox 07/26/21 20:45 98.1 F 81 18 124/86 98 07/26/21 18:14 98.7 F 84 16 122/79 96
[2021-07-26 22:12] VITALS: BP 124/86; PULSE 81
== END 2021-07-26 20:45 | disposition home or self-care (01) ==
LOC: MW.ED 17:46
DX: S02.5XXA Fracture of tooth (traumatic), initial encounter for closed fracture (principal); Z72.0 Tobacco use; X58.XXXA Exposure to other specified factors, initial encounter
CPT/HCPCS: 99282; A9270

== ENCOUNTER 2021-08-07 22:49 | Emergency (ER) | payer MEDICAID ==
[2021-08-07 23:13] VITALS: BP 121/79; PULSE 98
[2021-08-08] MEDS ORDERED: Prochlorperazine 10 MG/2 ML SDV IVPUSH ONE (00:28)
[2021-08-08] MEDS ORDERED: Dexamethasone 10 MG/ML SDV IVPUSH ONE (00:28)
[2021-08-08] MEDS ORDERED: Ketorolac 15 MG/ML SDV IVPUSH ONE (00:28)
[2021-08-08] MEDS ORDERED: diphenhydrAMINE 50 MG/ML SDV IVPUSH ONE (00:28)
[2021-08-08] MEDS ORDERED: Dextrose 5%-0.9% NaCl 1,000 ML IV SCH (00:30)
--- NOTE | 2021-08-08 01:49 | EDM.PDOC ---
ED HPI GENERAL MEDICAL PROBLEM - General Chief Complaint: Headache Stated Complaint: MIGRAINE Time Seen by Provider: 08/07/21 23:58 - History of Present Illness INITIAL COMMENTS - FREE TEXT/NARRATIVE: CHIEF COMPLAINT(S): Migraine HISTORY OF PRESENT ILLNESS: This is a 31-year-old woman with a past medical history of migraine headaches who comes to the emergency department with a chief complaint of migraine. The patient states that for the last 2 days she has been experiencing a migraine. She describes it as bifrontal associated with photophobia. She denies any blurry vision, double vision or loss of vision. She denies any trouble walking, fever, or neck stiffness. She rates her pain as 8 out of 10 and describes it as throbbing. She denies any exacerbating or relieving factors. She states that she has taken sumatriptan and some other medication that she was prescribed which did not help. She denies any other symptoms. REVIEW OF SYSTEMS: Constitutional: Denies fever, chills. Eyes: Denies eye pain Ears, Nose, Mouth, & Throat: Denies earache Cardiovascular: Denies chest pain Respiratory: Denies shortness of breath Gastrointestinal: Denies Nausea, vomiting, diarrhea, hematochezia. Genitourinary: Denies hematuria Skin:Denies a rash MSK: Denies joint pain Neurological: Positive for bifrontal headache and photophobia. Denies blurred vision, double vision, loss of vision, numbness, tingling, weakness psychiatric: Denies depression PAST MEDICAL HISTORY: As per history of present illness and as reviewed below otherwise noncontributory. SURGICAL HISTORY: As per history of present illness and as reviewed below otherwise noncontributory. SOCIAL HISTORY: As per history of present illness and as reviewed below otherwise noncontributory. FAMILY HISTORY: As per history of present illness and as reviewed below otherwise noncontributory. EXAMINATION OF ORGAN SYSTEMS/BODY AREAS: Constitutional: Blood pressure is 121/79, heart rate 98, respiratory rate 18 with an oxygen saturation 99% on room air. Temperature 36.8 General: Well-appearing woman who is in no acute distress Psychiatric: Appropriate mood and affect. Eyes: No scleral icterus or conjunctival erythema pupils equal round and react lacey to light. Extraocular movements intact. No vertical or horizontal nystagmus. ENMT: Moist mucous membranes. No pharyngeal erythema no neck stiffness. Cardiovascular: Regular, rate, and rhythm. No gallops, murmurs, or rubs. Bilateral upper extremity pulses symmetric and intact. No peripheral edema. No JVD. Respiratory: Lungs clear to auscultation bilaterally. No wheezes, rales, or rhonchi. Gastrointestinal: Soft, non-tender, non-distended. Normoactive bowel sounds Genitourinary: No suprapubic tenderness Musculoskeletal: Normal range of motion. Skin: No lesions or abrasions. Neurological: AOx4. CN grossly intact. Strength 5/5 in bilateral upper and lower extremity. Sensation is intact bilaterally in upper and lower extremity. Gait appears normal. Finger to nose, heel to turk, rapid alternating movements intact. MEDICAL DECISION MAKING AND COURSE IN THE ED WITH INTERPRETATION/REVIEW OF DIAGNOSTIC STUDIES: This is a 31-year-old woman with a past medical history of migraine headaches who comes into the emergency department with an exacerbation of her typical migraine. At this time I do not believe any labs or imaging are indicated. We will treat the patient symptomatically with Toradol, Compazine, Benadryl and 1 L of D5 normal saline. We will reevaluate after treatment. On reevaluation patient reported symptomatic improvement. I did discuss symptomatic treatment at home. She was given strict return precautions. She was amenable to discharge and had no further questions. DISPOSITION: The patient was discharged home in stable condition. The patient will follow up with primary care physician in 3 to 5 days CONDITION: Fair PROCEDURES: None FINAL IMPRESSION(S)/DIAGNOSES: 1. Acute migraine Eitan Patel M.D. 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 Musculoskeletal History: Reports: Neck Pain, Chronic Neurological History: Reports: Migraines Psychiatric History: Reports: None Endocrine/Metabolic History: Reports: None Hematologic History: Reports: None Immunologic History: Reports: None Oncologic (Cancer) History: Reports: None Dermatologic History: Reports: None - Infectious Disease History Infectious Disease History: Reports: Chicken Pox - Past Surgical History Head Surgeries/Procedures: Reports: None HEENT Surgical History: Reports: Other (See Below) Other HEENT Surgeries/Procedures: lymph node removal left throat Cardiovascular Surgical History: Reports: None Respiratory Surgical History: Reports: None GI Surgical History: Reports: None Female Surgical History: Reports: None Endocrine Surgical History: Reports: None Neurological Surgical History: Reports: None Musculoskeletal Surgical History: Reports: None Oncologic Surgical History: Reports: None Dermatological Surgical History: Reports: None Social & Family History - Family History Family Medical History: No Pertinent Family History HEENT: Reports: None Cardiac: Reports: None Respiratory: Reports: None GI: Reports: None : Reports: None OBGYN: Reports: None Musculoskeletal: Reports: None Neurological: Reports: None Psychiatric: Reports: None Endocrine/Metabolic: Reports: None Hematologic: Reports: None Immunologic: Reports: None Dermatologic: Reports: None Oncologic: Reports: None - Tobacco Use Second Hand Smoke Exposure: No - Caffeine Use Caffeine Use: Reports: None Other Caffeine Use: 2-3 day - Recreational Drug Use Recreational Drug Use: No ED ROS GENERAL - Review of Systems Review Of Systems: See Below ED EXAM, GENERAL - Physical Exam Exam: See Below Course - Vital Signs Last Recorded V/S: Last Vital Signs Temp 36.8 C 08/07/21 23:10 Pulse 98 08/07/21 23:10 Resp 20 08/07/21 23:10 BP 121/79 08/07/21 23:10 Pulse Ox 99 08/07/21 23:10 - Orders/Labs/Meds Meds: Medications Discontinued Medications Generic Name Dose Route Start Last Admin Trade Name Freq PRN Reason Stop Dose Admin Dexamethasone 10 mg 08/08/21 00:28 08/08/21 00:47 Dexamethasone 10 Mg/Ml Sdv IVPUSH 08/08/21 00:29 10 mg ONETIME ONE Administration Diphenhydramine HCl 25 mg 08/08/21 00:28 08/08/21 00:50 Diphenhydramine 50 Mg/Ml Sdv IVPUSH 08/08/21 00:29 25 mg ONETIME ONE Administration Dextrose/Sodium Chloride 1,000 mls @ 999 mls/hr 08/08/21 00:30 08/08/21 00:45 Dextrose 5%-Normal Saline IV 999 mls/hr ASDIRECTED EDGARDO Administration Ketorolac Tromethamine 15 mg 08/08/21 00:28 08/08/21 00:45 Ketorolac 15 Mg/Ml Sdv IVPUSH 08/08/21 00:29 15 mg ONETIME ONE Administration Prochlorperazine Edisylate 5 mg 08/08/21 00:28 08/08/21 00:48 Prochlorperazine 10 Mg/2 Ml Sdv IVPUSH 08/08/21 00:29 5 mg ONETIME ONE Administration Departure - Departure Time of Disposition: 01:49 Disposition: Home, Self-Care 01 Condition: Fair Clinical Impression: Migraine - Discharge Information *PRESCRIPTION DRUG MONITORING PROGRAM REVIEWED*: No *COPY OF PRESCRIPTION DRUG MONITORING REPORT IN PATIENT KAYLIN: No Instructions: Migraine Headache, [id number] Referrals: Lenny Umana MD [Primary Care Provider] - Forms: ED Department Discharge Additional Instructions: Your evaluated today on an emergent basis. At this time we did treat your migraine and it did seem to improve. At this time I recommend that she continue with the same treatments that you were doing prior to your visit today. I recommend you follow-up with your primary care physician for further management. If you have any worsening of your symptoms are welcome to return to the emergency department. [facility] - Primary Care [address] [place] [address] [place] [address] The patient is informed of any results of their evaluation and diagnostic workup and all questions are answered. They are given discharge instructions and return precautions. The patient is stable for discharge. The patient states they understand and agree with the plan and that they will return if their symptoms get worse or if they have any new concerns. The following information is given to patients seen in the emergency department who are being discharged to home. This information is to outline your options for follow-up care. We provide all patients seen in our emergency department with a follow-up referral. The need for follow-up, as well as the timing and circumstances, are variable depending upon the specifics of your emergency department visit. If you don't have a primary care physician on staff, we will provide you with a referral. We always advise you to contact your personal physician following an emergency department visit to inform them of the circumstance of the visit and for follow-up with them and/or the need for any referrals to a consulting specialist. The emergency department will also refer you to a specialist when appropriate. This referral assures that you have the opportunity for follow-up care with a specialist. All of these measure are taken in an effort to provide you with optimal care, which includes your follow-up. Under all circumstances we always encourage you to contact your private physician who remains a resource for coordinating your care. When calling for follow-up care, please make the office aware that this follow-up is from your recent emergency room visit. If for any reason you are refused follow-up, please contact the [facility] Emergency Department at and asked to speak to the emergency department charge nurse. Sepsis Event Note (ED) - Evaluation Sepsis Screening Result: No Definite Risk - Focused Exam Vital Signs: Vital Signs Temp Pulse Resp BP Pulse Ox 08/07/21 23:10 36.8 C 98 20 121/79 99
== END 2021-08-08 01:57 | disposition home or self-care (01) ==
LOC: MW.ED 22:49
DX: G43.909 Migraine, unspecified, not intractable, without status migrainosus (principal)
CPT/HCPCS: 96374; 96375; 99283; J0780; J1100; J1200; J1885; J7042

== ENCOUNTER 2021-08-22 07:52 | Day surgery (SDC) | payer MEDICAID ==
--- NOTE | 2021-08-22 07:57 | PCM.PREANE ---
Preanesthetic Assessment - Anesthesia/Transfusion/Family Hx Anesthesia History: Prior Anesthesia Without Reaction Transfusion History: No Prior Transfusion(s) - Review of Systems General: No Symptoms Pulmonary: No Symptoms Cardiovascular: No Symptoms Gastrointestinal: No Symptoms Neurological: No Symptoms Other: Reports: None - Physical Assessment NPO Status Date: 08/22/21 NPO Status Time: 00:00 Height: 5 ft 8 in Weight: 168 lb ASA Class: 2 Mental Status: Alert & Oriented x3 Airway Class: Mallampati = 2 Dentition: Reports: Normal Dentition ROM/Head Extension: Full Lungs: Clear to Auscultation, Normal Respiratory Effort Cardiovascular: Regular Rate, Regular Rhythm - Allergies Allergies/Adverse Reactions: Allergies Allergy/AdvReac Type Severity Reaction Status Date / Time No Known Allergies Allergy Verified 08/16/21 12:23 - Acknowledgements Anesthesia Type Planned: General Anesthesia Pt an Appropriate Candidate for the Planned Anesthesia: Yes Alternatives and Risks of Anesthesia Discussed w Pt/Guardian: Yes Pt/Guardian Understands and Agrees with Anesthesia Plan: Yes PreAnesthesia Questionnaire - Past Health History Medical/Surgical History: Denies Medical/Surgical History HEENT History: Reports: None Cardiovascular History: Reports: None Respiratory History: Reports: None Gastrointestinal History: Reports: Other (See Below) Other Gastrointestinal History: c/o left sided abd pain Genitourinary History: Reports: None 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: , 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 (See Below) Other OB/BYN History: ETOP Musculoskeletal History: Reports: None Neurological History: Reports: Migraines, TIA Other Neuro History: states TIA in 2011 Psychiatric History: Reports: Anxiety Endocrine/Metabolic History: Reports: None Hematologic History: Reports: None Immunologic History: Reports: None Oncologic (Cancer) History: Reports: None Dermatologic History: Reports: None - Infectious Disease History Infectious Disease History: Reports: Chicken Pox - Past Surgical History Other HEENT Surgeries/Procedures: lymph node removal left neck GI Surgical History: Reports: Appendectomy - SUBSTANCE USE Tobacco Use Status *Q: Current Every Day Tobacco User Tobacco Use Within Last Twelve Months: Cigarettes - HOME MEDS Home Medications: Home Meds Acetaminophen [Tylenol Extra Strength] 2 tab PO ASDIRECTED PRN 08/16/21 [History] Clindamycin HCl 300 mg PO TID 08/16/21 [History] - CURRENT (IN HOUSE) MEDS Current Meds: Current Medications Lactated Ringer's (Ringers, Lactated) 1,000 mls @ 125 mls/hr IV ASDIRECTED EDGARDO
[2021-08-22] MEDS ORDERED: Lactated Ringers 1,000 ML IV SCH (08:00)
[2021-08-22] MEDS ORDERED: Propofol 200 MG/20 ML SDV ONE ×2 (08:49→09:57)
[2021-08-22] MEDS ORDERED: Midazolam 1 MG/ML 2 ML SDV ONE (08:50)
[2021-08-22] MEDS ORDERED: fentaNYL 100 MCG/2 ML SDV ONE (08:50)
--- NOTE | 2021-08-22 09:59 | PCM.OPNOTE ---
- General Post-Op/Procedure Note Date of Surgery/Procedure: 08/22/21 Operative Procedure(s): EGD with biopsies Findings: Gastritis dictation number [id number] Pre Op Diagnosis: Epigastric/LUQ pain Post-Op Diagnosis: Gastritis [place] [facility] [place]: Brad Chavez Pathology: Biopsies Complications: None Condition: Good
--- NOTE | 2021-08-22 10:12 | PCM48HPAN ---
Post Anesthesia Note - EVALUATION WITHIN 48HRS OF ANESTHETIC Vital Signs in Normal Range: Yes Patient Participated in Evaluation: Yes Respiratory Function Stable: Yes Airway Patent: Yes Cardiovascular Function Stable: Yes Hydration Status Stable: Yes Pain Control Satisfactory: Yes Nausea and Vomiting Control Satisfactory: Yes Mental Status Recovered: Yes Vital Signs: Last Vital Signs Temp 98.4 F 08/22/21 10:01 Pulse 81 08/22/21 10:07 Resp 18 08/22/21 10:07 BP 96/54 L 08/22/21 10:07 Pulse Ox 92 L 08/22/21 10:07
--- NOTE | 2021-08-22 10:12 | PCM.POSTAN ---
POST ANESTHESIA ASSESSMENT - MENTAL STATUS Mental Status: Alert, Oriented - VITAL SIGNS Vital Signs: Last Vital Signs Temp 98.4 F 08/22/21 10:01 Pulse 81 08/22/21 10:07 Resp 18 08/22/21 10:07 BP 96/54 L 08/22/21 10:07 Pulse Ox 92 L 08/22/21 10:07 - RESPIRATORY Respiratory Status: Respiratory Rate WNL, Airway Patent, O2 Saturation Stable - CARDIOVASCULAR CV Status: Pulse Rate WNL, Blood Pressure Stable - GASTROINTESTINAL GI Status: No Symptoms - POST OP HYDRATION Hydration Status: Adequate & Stable
[2021-08-22 10:35] VITALS: BP 103/57; PULSE 80
--- NOTE | 2021-08-22 13:50 | OR ---
SURGEON: DEBBIE WALLS MD DATE OF PROCEDURE: 08/22/2021 PREOPERATIVE DIAGNOSIS: Epigastric/left upper quadrant pain. POSTOPERATIVE DIAGNOSIS: Gastritis. PRIMARY SURGEON: Debbie Walls MD PROCEDURE PERFORMED: Esophagogastroduodenoscopy with biopsies. ANESTHESIA: With Anesthesiology. EXTENT OF THE EGD: To the duodenum. COMPLICATIONS: None. REASON FOR PROCEDURE: Patient is a pleasant 31-year-old female who says for the past year and a half has some left upper quadrant pain, usually happens after eating. She says the pain kind of radiates up and down her left flank, it will last about 2 to 3 minutes. She denies any heartburn issues. Denies any swallowing issues. Patient reports she has not started taking her PPI as recommended. Patient does have a HIDA scan scheduled for tomorrow. All of the patient's questions about the procedures were answered. I did go over the risks, goals, and alternatives. OPERATION NARRATIVE: Physical examination was performed. The major risks and benefits associated with the procedure were explained to the patient again in detail. The patient verbalized understanding and agreement with the same. The patient was then connected to appropriate monitoring device and IV started. EKG, pulse, pulse oximetry, blood pressure, and capnography were monitored throughout the entire procedure. Continuous oxygen and sedation were provided by the anesthesiologist. After sedation began, an upper endoscope was advanced under direct visualization without difficulty in the upper GI tract. The anatomy of the mucosa of the esophagus, GE junction, stomach, pylorus, and duodenum were inspected. Duodenum appeared normal. Scope was brought back to the stomach. Both retro and antegrade views were done. Patient had some mild gastritis with a couple of areas of old punctate bleeding. Nothing was actively bleeding. The punctate gastritis seemed to be more associated with the antrum in the stomach. I did do some biopsies the antrum, pylorus area to check for H pylori. Scope was brought to the GE junction. GE junction was approximately 37 cm from incisors. She had good squamocolumnar junction. Scope was brought to the stomach. Stomach was deinsufflated. Scope was brought to the esophagus. Esophagus appeared normal. Scope was completely removed and procedure was terminated. ENDOSCOPIC DIAGNOSIS: Gastritis. RECOMMENDATIONS: The patient will follow up in the clinic to go over her EGD results along with hopefully her HIDA scan results. I did again go over with the patient that she should start taking her omeprazole as discussed in the clinic. This might help with her gastritis. VERONIAC RAMOS /[id number]
== END 2021-08-22 10:24 | disposition home or self-care (01) ==
LOC: MW.SDS 07:52
PROVIDERS: ATTEND Surgery
DX: K29.50 Unspecified chronic gastritis without bleeding (principal); K31.89 Other diseases of stomach and duodenum; F41.9 Anxiety disorder, unspecified; F32.A Depression, unspecified; F17.200 Nicotine dependence, unspecified, uncomplicated; G43.009 Migraine without aura, not intractable, without status migrainosus; Z79.899 Other long term (current) drug therapy; Z98.890 Other specified postprocedural states; Z90.49 Acquired absence of other specified parts of digestive tract
CPT/HCPCS: 43239; 81025; J2250; J2704; J3010; J7120; 00731

== ENCOUNTER 2021-10-24 22:15 | Emergency (ER) | payer MEDICAID ==
[2021-10-24 23:49] LABS: CORONAVIRUS COVID-19 NAA POSITIVE (NEGATIVE); INFLUENZA A NAA NEGATIVE (NEGATIVE); INFLUENZA B NAA NEGATIVE (NEGATIVE); RESPIRATORY SYNCYTIAL VIR NAA NEGATIVE (NEGATIVE)
[2021-10-25 00:38] VITALS: BP 110/70; PULSE 96
== END 2021-10-25 00:30 | disposition home or self-care (01) ==
LOC: MW.ED 22:15
DX: U07.1 COVID-19 (principal)
CPT/HCPCS: 0241U; 99283

== ENCOUNTER 2022-04-01 11:29 | Emergency (ER) | payer MEDICAID ==
[2022-04-01 11:38] VITALS: BP 105/69; PULSE 95
[2022-04-01] MEDS ORDERED: Benzocaine 20% Topical Spray UD MUCMEM ONE (12:46)
[2022-04-01] MEDS ORDERED: Lidocaine 2% Viscous Solution 15 ML UD PO ONE (12:46)
[2022-04-01 14:26] LABS: C. TRACHOMATIS BY PCR NOT DETECTED; N. GONORRHOEAE BY PCR NOT DETECTED
== END 2022-04-01 13:45 | disposition home or self-care (01) ==
LOC: MW.ED 11:29
DX: J02.9 Acute pharyngitis, unspecified (principal); N76.0 Acute vaginitis; B96.89 Other specified bacterial agents as the cause of diseases classified elsewhere; F17.210 Nicotine dependence, cigarettes, uncomplicated
CPT/HCPCS: 36415; 81003; 81025; 86592; 87480; 87491; 87510; 87591; 87651; 87660; 99283; A9270

== ENCOUNTER 2023-02-10 01:48 | Emergency (ER) | payer MEDICAID ==
[2023-02-10] MEDS ORDERED: Acetaminophen 500 MG Tab PO ONE (02:36)
[2023-02-10 02:42] VITALS: BP 133/68
[2023-02-10] MEDS ORDERED: Nitrofurantoin Monohydrate/Macrocrystalline 100 MG Cap PO ONE (03:39)
[2023-02-10 03:47] LABS: CARBON DIOXIDE,CO2 22.7 mmol/L (21.0-32.0); POTASSIUM,K 3.6 mmol/L (3.5-5.1)
[2023-02-10 04:19] VITALS: PULSE 74
== END 2023-02-10 04:18 | disposition home or self-care (01) ==
LOC: MW.ED 01:48
DX: O47.02 False labor before 37 completed weeks of gestation, second trimester (principal); O98.812 Other maternal infectious and parasitic diseases complicating pregnancy, second trimester; B37.31 Acute candidiasis of vulva and vagina; O99.891 Other specified diseases and conditions complicating pregnancy; R82.71 Bacteriuria; Z3A.19 19 weeks gestation of pregnancy
CPT/HCPCS: 36415; 76815; 80053; 81001; 84702; 85025; 86900; 86901; 99284; A9270

== ENCOUNTER 2023-07-07 00:05 | Inpatient (IN) | payer MEDICAID ==
[2023-07-07] MEDS ORDERED: Carboprost Tromethamine 250 MCG/1 mL Vial IM PRN (00:50)
[2023-07-07] MEDS ORDERED: Sodium Chloride 0.9% 10 ML Syringe FLUSH PRN (00:50)
[2023-07-07] MEDS ORDERED: Terbutaline 1 MG/ML SDV SUBCUT PRN (00:50)
[2023-07-07] MEDS ORDERED: Misoprostol 200 MCG Tab PO PRN (00:50)
[2023-07-07] MEDS ORDERED: Methylergonovine 0.2 MG/1 ML Amp IM PRN (00:50)
[2023-07-07] MEDS ORDERED: Water For Irrigation,Sterile 1,000 ML Container IRR PRN (00:50)
[2023-07-07] MEDS ORDERED: Ondansetron 4 MG/2 ML SDV IVPUSH PRN (00:50)
[2023-07-07] MEDS ORDERED: Sodium Chloride 0.9% 20 ML SDV IV PRN (00:50)
[2023-07-07] MEDS ORDERED: Tranexamic Acid IN NACL,ISO-OS 1,000 MG in Premix Bag 1 BAG IV PRN ×2 (00:50)
[2023-07-07] MEDS ORDERED: Misoprostol 25 MCG (1/4 of 100 MCG) Tab VAG PRN ×2 (00:50)
[2023-07-07] MEDS ORDERED: Sodium Chloride 0.9% 2.5 ML Syringe FLUSH PRN (00:50)
[2023-07-07] MEDS ORDERED: Lidocaine 1% 50 ML MDV INJECT PRN (00:50)
[2023-07-07] MEDS ORDERED: Ampicillin 2 GM in Sodium Chloride 0.9% 100 ML IV ONE (01:00)
[2023-07-07] MEDS ORDERED: Oxytocin/0.9 % Sodium Chloride 30 UNIT/500 ML BAG IV SCH ×2 (01:00)
[2023-07-07 02:01] LABS: HEMATOCRIT 36.3 % (36.0-46.0); HEMOGLOBIN 11.9 g/dL (12.0-16.0); MEAN CORPUSCULAR HEMOGLOBIN 28.6 pg (27.0-32.0); MEAN CORPUSCULAR HGB CONC 32.8 g/dL (31.0-37.0); MEAN CORPUSCULAR VOLUME 87.3 fL (80.0-98.0); MEAN PLATELET VOLUME 11.4 fL (7.40-12.00); NRBC PERCENT 0.2 /100WBC; RED BLOOD CELL COUNT 4.16 M/uL (4.30-5.90); WHITE BLOOD CELL COUNT,WBC 8.1 K/uL (4.0-11.0)
[2023-07-07] MEDS: Lactated Ringers 1,000 ML IV SCH ×2 (02:15→13:15)
[2023-07-07] MEDS ORDERED: Sodium Chloride 0.9% 50 ML ONE (06:05)
[2023-07-07] MEDS: Ampicillin 1 GM in Sodium Chloride 0.9% 50 ML IV SCH ×5 (06:12→21:59)
[2023-07-07] MEDS ORDERED: Ropivacaine HCl/PF 400 MG in Premix Bag 1 BAG EPIDUR SCH (07:30)
[2023-07-07] MEDS ORDERED: ePHEDrine 50 MG/ML SDV IVPUSH PRN ×2 (07:30)
[2023-07-07] MEDS ORDERED: Phenylephrine HCl 0.5 MG/5 ML AMP IVPUSH PRN (07:30)
[2023-07-07] MEDS ORDERED: Bupivacaine 0.25% 10 ML SDV ONE (14:45)
[2023-07-07] MEDS ORDERED: Dexmedetomidine 200 MCG/2 ML SDV ONE (14:45)
[2023-07-07] MEDS ORDERED: Acetaminophen 500 MG Tab PO PRN (19:05)
[2023-07-08] MEDS ORDERED: Tranexamic Acid IN NACL,ISO-OS 1,000 MG in Premix Bag 1 BAG IV PRN ×2 (00:01)
[2023-07-08] MEDS ORDERED: Acetaminophen 500 MG Tab PO PRN (00:01)
[2023-07-08] MEDS ORDERED: Ibuprofen 400 MG Tab PO PRN (00:01)
[2023-07-08] MEDS ORDERED: Benzocaine/Menthol 20%-0.5% Spray 78 GM Cannister TOP PRN (00:01)
[2023-07-08] MEDS ORDERED: Methylergonovine 0.2 MG/1 ML Amp IM PRN (00:01)
[2023-07-08] MEDS ORDERED: Witch Hazel Medicated Pads 40/Jar TOP PRN (00:01)
[2023-07-08] MEDS ORDERED: Acetaminophen/Butalbital/Caffeine 325-50-40 MG Tab PO PRN (00:01)
[2023-07-08] MEDS ORDERED: Docusate Sodium 100 MG Cap PO PRN (00:01)
[2023-07-08] MEDS ORDERED: Lanolin 100% Cream 7 GM Tube TOP PRN (00:01)
[2023-07-08] MEDS ORDERED: Bisacodyl 10 MG Supp RECTAL PRN (00:01)
[2023-07-08 00:25] LABS: PH,UMBILICAL ARTERIAL 7.234 (7.18-7.38); PH,UMBILICAL VENOUS 7.301 (7.25-7.45)
[2023-07-08] MEDS: Acetaminophen 500 MG Tab PO PRN ×3 (04:05→20:14)
[2023-07-08] MEDS: Ibuprofen 800 MG Tab PO PRN ×3 (07:31→20:12)
[2023-07-09] MEDS: Ibuprofen 800 MG Tab PO PRN (05:15)
[2023-07-09 05:37] LABS: HEMATOCRIT 35.8 % (36.0-46.0); HEMOGLOBIN 11.4 g/dL (12.0-16.0)
[2023-07-09 06:07] VITALS: PULSE 72
[2023-07-09] MEDS: Acetaminophen 500 MG Tab PO PRN (08:12)
[2023-07-09 08:48] VITALS: BP 131/84
== END 2023-07-09 13:57 | disposition home or self-care (01) | DRG 806 ==
LOC: MW.OB 00:05 → OBSVTOIN 23:43 → MW.OB 23:43
PROVIDERS: ADMIT Obstetrics & Gynecology; ATTEND Obstetrics & Gynecology
PROC: 10E0XZZ Delivery of Products of Conception, External Approach (ICD-10-PCS; principal; 2023-07-07)
PROC: 3E0R3BZ Introduction of Anesthetic Agent into Spinal Canal, Percutaneous Approach (ICD-10-PCS; 2023-07-07)
PROC: 00HU33Z Insertion of Infusion Device into Spinal Canal, Percutaneous Approach (ICD-10-PCS; 2023-07-07)
PROC: 10907ZC Drainage of Amniotic Fluid, Therapeutic from Products of Conception, Via Natural or Artificial Opening (ICD-10-PCS; 2023-07-07)
PROC: 3E033VJ Introduction of Other Hormone into Peripheral Vein, Percutaneous Approach (ICD-10-PCS; 2023-07-07)
PROC: 3E0P7VZ Introduction of Hormone into Female Reproductive, Via Natural or Artificial Opening (ICD-10-PCS; 2023-07-07)
DX: O99.824 Streptococcus B carrier state complicating childbirth (principal); O98.52 Other viral diseases complicating childbirth; Z37.0 Single live birth; B00.9 Herpesviral infection, unspecified; O66.2 Obstructed labor due to unusually large fetus; O99.344 Other mental disorders complicating childbirth; F32.A Depression, unspecified; Z3A.39 39 weeks gestation of pregnancy; Z86.19 Personal history of other infectious and parasitic diseases
CPT/HCPCS: 01967; 36415; 51702; 59409; 82803; 85014; 85018; 85027; 86592; 86850; 86900; 86901; A9270-GY; J0290; J2405; J2590; J3490; J7120

== ENCOUNTER 2023-11-21 13:01 | Emergency (ER) | payer SELFPAY | END 2023-11-21 14:02 | disposition left against medical advice (07) | LOC: MW.ED 13:01 | DX: Z53.21 Procedure and treatment not carried out due to patient leaving prior to being seen by health care provider (principal) ==

== ENCOUNTER 2023-11-21 14:06 | Emergency (ER) | payer MEDICAID ==
[2023-11-21 14:42] VITALS: BP 119/45; PULSE 116
[2023-11-21] MEDS: Lidocaine/Epineph/Tetracaine 3 ML Syringe TOP ONE (15:27)
== END 2023-11-21 16:01 | disposition left against medical advice (07) ==
LOC: MW.ED 14:06
DX: S01.01XA Laceration without foreign body of scalp, initial encounter (principal); Z86.73 Personal history of transient ischemic attack (TIA), and cerebral infarction without residual deficits; Z53.29 Procedure and treatment not carried out because of patient's decision for other reasons; W01.198A Fall on same level from slipping, tripping and stumbling with subsequent striking against other object, initial encounter
CPT/HCPCS: 99283; A9270

== ENCOUNTER 2025-03-24 19:15 | Emergency (ER) | payer SELFPAY | END 2025-03-24 20:28 | disposition left against medical advice (07) | LOC: MW.ED 19:15 | DX: Z53.21 Procedure and treatment not carried out due to patient leaving prior to being seen by health care provider (principal) ==